=== PATIENT | male | born 1985 | race Caucasian/White ===

== ENCOUNTER 2016-05-25 17:42 | Emergency (ER) | payer OTHER ==
--- NOTE | 2016-05-25 17:57 | ERPHSYRPT ---
- History of Present Illness Time Seen by Provider: 05/25/16 17:45 Source: patient, family Exam Limitations: no limitations Patient Subjective Stated Complaint: pt states he hit head on a tree branch 15 min [employer]. pt states his mother told him he was unconscious for about a minute. Triage Nursing Assessment: pt pink, warm, dry. pt ambulated into er without difficulty. pupils perrl. redness noted to scalp. no hematoma noted. Occurred: just prior to arrival Severity: moderate Head Injury Location: frontal Method of Injury: direct blow Loss of Consciousness: prolonged (minutes) (2) Associated Symptoms: other (dizziness) Allergies/Adverse Reactions: diazepam [From Valium] Allergy (Verified 05/25/16 17:50) erythromycin base [Erythromycin Base] Allergy (Verified 05/25/16 17:50) Penicillins Allergy (Verified 05/25/16 17:50) Home Medications: Citalopram Hydrobromide 20 mg* [ceLEXa 20 MG] 20 mg PO DAILY 02/06/16 [ History] Lisinopril 10 mg [Zestril 10 MG] 10 mg PO DAILY 02/06/16 [History] Buspirone HCl 10 mg PO BID 05/25/16 [History] Hx Tetanus, Diphtheria Vaccination/Date Given: Yes (up to date) Hx Influenza Vaccination/Date Given: No Hx Pneumococcal Vaccination/Date Given: No Immunizations Up to Date: Yes - Review of Systems Constitutional: No Symptoms Eyes: No Symptoms Ears, Nose, & Throat: No Symptoms Respiratory: No Symptoms Cardiac: No Symptoms Abdominal/Gastrointestinal: No Symptoms Genitourinary Symptoms: No Symptoms Musculoskeletal: No Symptoms Skin: No Symptoms Neurological: Dizziness, Headache Psychological: No Symptoms Endocrine: No Symptoms Hematologic/Lymphatic: No Symptoms Immunological/Allergic: No Symptoms - Past Medical History Pertinent Past Medical History: Yes Neurological History: No Pertinent History ENT History: No Pertinent History Cardiac History: Hypertension Respiratory History: Asthma Endocrine Medical History: No Pertinent History Musculoskeletal History: No Pertinent History GI Medical History: No Pertinent History History: No Pertinent History Psycho-Social History: Depression Male Reproductive Disorders: No Pertinent History Other Medical History: CHRONIC BACK PAIN - Past Surgical History Past Surgical History: Yes Neuro Surgical History: No Pertinent History Cardiac: No Pertinent History Respiratory: No Pertinent History Gastrointestinal: Cholecystectomy, Hernia Repair Genitourinary: No Pertinent History Musculoskeletal: No Pertinent History Male Surgical History: No Pertinent History Other Surgical History: tonsils, umb hernia repair on - Social History Smoking Status: Current every day smoker How long have you smoked: 1 Exposure to second hand smoke: Yes Drug Use: none Patient Lives Alone: No - Nursing Vital Signs Nursing Vital Signs: Initial Vital Signs Temperature 98.0 F Temperature Source Oral Pulse Rate 90 Respiratory Rate 18 Blood Pressure 132/77 Pain Intensity 0 - [place] Coma Score Best Eye Response ([place]): (4) open spontaneously Best Verbal Response ([place]): (5) oriented Best Motor Response ([place]): (6) obeys commands [place] Total: 15 - Physical Exam General Appearance: moderate distress Head Injury: contusions, tenderness (vertex scalp 1 cm abrasion) Eye Exam: bilateral eye: normal inspection, PERRL, EOMI ENT Exam: airway nml, evidence of ENT injury Neck Exam: supple, trachea midline, full range of motion, normal alignment, normal inspection Cardiovascular/Respiratory Exam: chest non-tender, normal breath sounds, regular rate/rhythm Gastrointestinal/Abdominal Exam: soft, non tender Back Exam: normal inspection, normal range of motion Extremity Exam: non-tender, normal range of motion, normal inspection, normal capillary refill Mental Status Exam: alert, oriented 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, 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 Exam: normal hearing, normal speech, PERRL, tongue midline Coordination/Gait Exam: normal gait, normal cerebellar function Motor/Sensory Exam: no motor deficit, no sensory deficit Skin Exam: normal color, warm, dry SpO2 Interpretation: normal SpO2: 99 Oxygen Delivery: Room Air - Course Nursing assessment & vital signs reviewed: Yes Ordered Tests: Active Orders 24 hr Category Date Time Status HEAD WITHOUT CONTRAST [CT] Stat Exams 05/25/16 18:04 Taken - Progress Progress: improved Counseled pt/family regarding: diagnosis, need for follow-up, rad results - Departure Time of Disposition: 19:00 Departure Disposition: Home Clinical Impression: Concussion Qualifiers: Encounter type: initial encounter Loss of consciousness presence/duration: with LOC of 30 min or less Qualified Code(s): S06.0X1A - Concussion with loss of consciousness of 30 minutes or less, initial encounter Condition: Stable Critical Care Time: Yes Critical Care Time(excluding separately billable procedures): 30-74 minutes
[2016-05-25 19:13] VITALS: BP 143/71; PULSE 78; O2SAT 96
--- NOTE | 2016-05-26 08:40 | XRAY ---
Indication: Pain and syncope following head injury. Multiple contiguous axial images obtained through the head without contrast. Comparison: None Normal appearing brain parenchyma, ventricles, and bony calvarium. There is mild mucosal thickening of both ethmoid, both sphenoid, and both maxillary sinuses. Mastoid air cells are pneumatized and clear. Impression: No acute intracranial abnormalities. Incidental paranasal sinus disease. Comment: Preliminary interpretation was made by [facility]. No discrepancy. CT DI is 51.47
== END 2016-05-25 19:14 | disposition home or self-care (01) ==
LOC: ED 17:42
DX: S06.0X1A Concussion with loss of consciousness of 30 minutes or less, initial encounter (principal); W22.8XXA Striking against or struck by other objects, initial encounter; Z79.899 Other long term (current) drug therapy; I10 Essential (primary) hypertension
CPT/HCPCS: 70450; 99283

== ENCOUNTER 2016-07-01 23:07 | Emergency (ER) | payer OTHER ==
[2016-07-01] MEDS ORDERED: Hydromorphone 1 mg/ml Ampule IM ONE (23:29)
[2016-07-01] MEDS ORDERED: Phenergan 25 MG INJ IM ONE (23:29)
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
[2016-07-01] MEDS ORDERED: Phenergan 25 MG INJ ONE (23:40)
[2016-07-01] MEDS ORDERED: Hydromorphone 1 mg/ml Ampule ONE (23:41)
[2016-07-02 00:37] VITALS: BP 130/76; PULSE 96; O2SAT 97
== END 2016-07-02 00:37 | disposition home or self-care (01) ==
LOC: ED 23:07
DX: S39.012A Strain of muscle, fascia and tendon of lower back, initial encounter (principal); M54.5 Low back pain; G89.21 Chronic pain due to trauma
CPT/HCPCS: 96372; 99282; 99283; 99284; J1170; J2550

== ENCOUNTER 2016-10-03 17:26 | Emergency (ER) | payer OTHER ==
[2016-10-03 17:37] VITALS: BP 174/99; PULSE 120; O2SAT 99
[2016-10-03] MEDS ORDERED: Sodium Chloride 0.9% 1000 ML 1,000 ML IV STA (17:49)
--- NOTE | 2016-10-03 17:52 | ERPHSYRPT ---
- History of Present Illness Time Seen by Provider: 10/03/16 17:45 Source: patient Exam Limitations: no limitations Patient Subjective Stated Complaint: " I had left hand surgery a few days ago. i have not really felt right since. I thought that it might be the norcos. So, i stopped taking them about 2 days ago, but I still feel sick to my stomach and kind of out of it" Triage Nursing Assessment: aox3, breathing easy unlabored, skin pink warm dry with surgical wound noted to left palm, steady gait Physician History: 31-year-old white male states that he had carpal tunnel release on the left several days ago he states shortly after his surgery he began calling out at night he states he's been feeling weak nervous occasional headache. No vomiting no fevers. Patient states he feels weak and just doesn't feel right he states that he stopped taking [place] because he thought that might be the problem but symptoms continue. Past medical history includes asthma high blood pressure depression and chronic back pain. Past surgical history includes cholecystectomy hernia repair carpal tunnel release tonsillectomy umbilical hernia. Social history includes tobacco use. Timing/Duration: day(s) (2-3 days) Severity: moderate Modifying Factors: Improves With: nothing. Worsens With: ibuprofen Associated Symptoms: malaise, weakness, No nausea, No vomiting, No abdominal pain, No shortness of breath, No heartburn, No diaphoresis, No cough, No chills , No chest pain, No fever, No headaches, No loss of appetite, No rash, No syncope, No seizure Allergies/Adverse Reactions: diazepam [From Valium] Allergy (Verified 10/03/16 17:31) erythromycin base [Erythromycin Base] Allergy (Verified 10/03/16 17:31) Penicillins Allergy (Verified 10/03/16 17:31) Home Medications: Lisinopril 10 mg [Zestril 10 MG] 10 mg PO DAILY 02/06/16 [History] Buspirone HCl 10 mg PO BID 05/25/16 [History] Hx Tetanus, Diphtheria Vaccination/Date Given: Yes Hx Influenza Vaccination/Date Given: No Hx Pneumococcal Vaccination/Date Given: No - Review of Systems Constitutional: Malaise, Weakness, No Fever, No Chills Eyes: No Symptoms Ears, Nose, & Throat: No Symptoms Respiratory: No Cough, No Dyspnea Cardiac: No Chest Pain, No Edema, No Syncope Abdominal/Gastrointestinal: No Abdominal Pain, No Nausea, No Vomiting, No Diarrhea Genitourinary Symptoms: No Dysuria Musculoskeletal: No Back Pain, No Neck Pain Skin: No Rash Neurological: No Symptoms Psychological: No Symptoms Endocrine: No Symptoms All Other Systems: Reviewed and Negative - Past Medical History Pertinent Past Medical History: Yes Neurological History: No Pertinent History ENT History: No Pertinent History Cardiac History: Hypertension Respiratory History: Asthma Endocrine Medical History: No Pertinent History Musculoskeletal History: No Pertinent History GI Medical History: No Pertinent History History: No Pertinent History Psycho-Social History: Depression Male Reproductive Disorders: No Pertinent History Other Medical History: CHRONIC BACK PAIN - Past Surgical History Past Surgical History: Yes Neuro Surgical History: No Pertinent History Cardiac: No Pertinent History Respiratory: No Pertinent History Gastrointestinal: Cholecystectomy, Hernia Repair Genitourinary: No Pertinent History Musculoskeletal: No Pertinent History Male Surgical History: No Pertinent History Other Surgical History: tonsils, umb hernia repair, left hand - Social History Smoking Status: Current every day smoker How long have you smoked: 1 Exposure to second hand smoke: Yes Drug Use: none Patient Lives Alone: No - Nursing Vital Signs Nursing Vital Signs: Initial Vital Signs Temperature 98.0 F Pulse Rate 120 Respiratory Rate 16 Blood Pressure [174/99] 174/99 Pain Intensity 5 - Physical Exam General Appearance: no apparent distress, alert Eye Exam: PERRL/EOMI, eyes nml inspection Ears, Nose, Throat Exam: normal ENT inspection, TMs normal, pharynx normal, moist mucous membranes Neck Exam: normal inspection, non-tender, supple, full range of motion Respiratory Exam: normal breath sounds, lungs clear, No respiratory distress Cardiovascular Exam: regular rate/rhythm, normal heart sounds, normal peripheral pulses Gastrointestinal/Abdomen Exam: soft, normal bowel sounds, No tenderness, No mass Back Exam: normal inspection, normal range of motion, No CVA tenderness, No vertebral tenderness Extremity Exam: other (left wrist status post carpal tunnel repair dressing in place no erythema) Neurologic Exam: alert, oriented x 3, cooperative, normal mood/affect, nml cerebellar function, nml station & gait, sensation nml, No motor deficits Skin Exam: normal color, warm, dry, No rash Lymphatic Exam: No adenopathy SpO2 Interpretation: normal (99%) SpO2: 99 Oxygen Delivery: Room Air - Course Nursing assessment & vital signs reviewed: Yes EKG Interpreted by Me: RATE (97 bpm), Sinus Rhythm, NORMAL AXIS, Other (EKG, normal sinus rhythm, 97 beats per minute, normal axis, no acute ST or T wave changes, normal EKG) Ordered Tests: Active Orders 24 hr Category Date Time Status Accucheck STAT Care 10/03/16 17:52 Active EKG-ER Only STAT Care 10/03/16 17:49 Active IV Insertion STAT Care 10/03/16 17:49 Active Orthostatic Vital Signs STAT Care 10/03/16 17:52 Active AMYLASE Stat Lab 10/03/16 18:15 Completed CBC W DIFF Stat Lab 10/03/16 18:15 Completed CMP Stat Lab 10/03/16 18:15 Completed LIPASE Stat Lab 10/03/16 18:15 Completed UA W/ MICROSCOPIC Stat Lab 10/03/16 18:00 Completed Medication Summary Discontinued Medications Generic Name Dose Route Start Last Admin Trade Name Freq PRN Reason Stop Dose Admin Sodium Chloride 1,000 mls @ 999 mls/hr 10/03/16 17:49 10/03/16 18:31 Sodium Chloride 0.9% 1000 Ml IV 10/03/16 18:49 999 mls/hr .Q1H1M STA Administration Sodium Chloride Confirm 10/03/16 18:00 Sodium Chloride 0.9% 1000 Ml Administered 10/03/16 18:01 Dose 1,000 mls @ ud .ROUTE .STK-MED ONE Lab/Rad Data: Laboratory Result Diagrams 10/03/16 18:15 10/03/16 18:15 Laboratory Results 10/03/16 10/03/16 10/03/16 Range/Units 18:15 18:15 18:00 WBC 9.5 (4.0-10.5) K/mm3 RBC 5.39 (4.1-5.6) M/mm3 Hgb 16.6 (12.5-18.0) gm/dl Hct 47.2 (42-50) % MCV 87.6 (78-100) fl MCH 30.8 (26-32) pg MCHC 35.2 (32-36) g/dl RDW 13.0 (11.5-14.0) % Plt Count 333 (150-450) K/mm3 MPV 8.5 (6-9.5) fl Gran % 57.7 (36.0-66.0) % Lymphocytes % 28.0 (24.0-44.0) % Monocytes % 8.1 (0.0-12.0) % Eosinophils % 5.8 H (0.00-5.0) % Basophils % 0.4 (0.0-0.4) % Basophils # 0.04 (0-0.4) Sodium 137 (136-145) mEq/L Potassium 4.6 (3.5-5.1) mEq/L Chloride 101 (98-107) mEq/L Carbon Dioxide 25.2 (21-32) mEq/L Anion Gap 15.0 (5-15) MEQ/L BUN 10 (9-20) mg/dL Creatinine 0.74 (0.55-1.30) mg/dl Estimated GFR > 60 ML/MIN Glucose 103 (70-110) MG/DL Calcium 9.6 (8.5-10.1) mg/dL Total Bilirubin 0.3 (0.2-1.0) mg/dL AST 39 H (15-37) U/L ALT 91 H (12-78) U/L Alkaline Phosphatase 51 (46-116) U/L Serum Total Protein 7.9 (6.4-8.2) gm/dL Albumin 4.3 (3.4-5.0) g/dL Amylase 35 (25-115) U/L Lipase 95 (73-393) U/L Ur Collection Type CLEAN CATCH Urine Color YELLOW (YELLOW) Urine Appearance CLEAR (CLEAR) Urine pH 5.5 (5-6) Ur Specific [place] 1.015 (1.005-1.025) Urine Protein NEGATIVE (Negative) Urine Glucose (UA) NEGATIVE (NEGATIVE) mg/dL Urine Ketones NEGATIVE (NEGATIVE) Urine Nitrite NEGATIVE (NEGATIVE) Urine Bilirubin NEGATIVE (NEGATIVE) Urine Urobilinogen 0.2 (0-1) mg/dL Urine WBC (Auto) NEGATIVE (NEGATIVE) Urine RBC (Auto) TRACE-LYSED (0-5) Mio/ul Urine Microscopic WBC 0-2 (0-5) /HPF Ur Epithelial Cells RARE (FEW) /HPF Urine Bacteria RARE (NEGATIVE) /HPF Specimen Received [id number] - Progress Progress: improved Progress Note: 10/03/16 19:32 Patient feeling better after a liter of normal saline. Patient mildly orthostatic prior to this EKG on this patient normal sinus rhythm normal axis XCVII beats per minute no acute ST or T wave changes urinalysis is unremarkable CBC is normal chemistry remarkable for slight elevation of SGOT and SGPT. Will discharge patient - Departure Time of Disposition: 19:33 Departure Disposition: Home Clinical Impression: Malaise, Mild dehydration, history of recent carpal tunnel release Fatigue Qualifiers: Fatigue type: unspecified Qualified Code(s): R53.83 - Other fatigue Condition: Fair Critical Care Time: No Additional Instructions: Return home. Plenty of fluids. Follow-up with your family doctor if symptoms are worse no better in 24-48 hours or persist longer than 72 hours. Return for acute distress or for severe symptoms.
[2016-10-03] MEDS ORDERED: Sodium Chloride 0.9% 1000 ML 1,000 ML ONE (18:00)
[2016-10-03 18:32] LABS: BASOPHIL % 0.4 % (0.0-0.4); Eosinophil % 5.8 % (0.00-5.0); Granulocytes % 57.7 % (36.0-66.0); Mean Cell Volume 87.6 fl (78-100); Mean Corpuscular Hemoglobin 30.8 pg (26-32); Mean Platelet Volume 8.5 fl (6-9.5); Monocytes % 8.1 % (0.0-12.0); Platelet Count 333 K/mm3 (150-450); Red Blood Count 5.39 M/mm3 (4.1-5.6); White Blood Count 9.5 K/mm3 (4.0-10.5)
[2016-10-03 18:47] LABS: ALBUMIN 4.3 g/dL (3.4-5.0); ALKALINE PHOSPHATASE 51 U/L (46-116); BILIRUBIN,TOTAL 0.3 mg/dL (0.2-1.0); BLOOD UREA NITROGEN 10 mg/dL (9-20); CHLORIDE 101 mEq/L (98-107); Carbon Dioxide 25.2 mEq/L (21-32); Glucose 103 MG/DL (70-110); LIPASE 95 U/L (73-393); Potassium 4.6 mEq/L (3.5-5.1); SGOT/AST 39 U/L (15-37); SGPT/ALT 91 U/L (12-78); SODIUM 137 mEq/L (136-145); Total Protein 7.9 gm/dL (6.4-8.2)
[2016-10-03 19:08] LABS: Bacteria RARE /HPF (NEGATIVE); COMPLETE URINE MICROSCOPIC? YES; Collection Type CLEAN CATCH; Epithelial Cells RARE /HPF (FEW); Ph 5.5 (5-6); WBC 0-2 /HPF (0-5)
== END 2016-10-03 19:51 | disposition home or self-care (01) ==
LOC: ED 17:26
DX: R53.83 Other fatigue (principal); R53.81 Other malaise; E86.0 Dehydration; Z98.890 Other specified postprocedural states
CPT/HCPCS: 36000; 36415; 80053; 81000; 82150; 82962; 83690; 85025; 93005; 96360; 99284

== ENCOUNTER 2016-11-22 23:15 | Emergency (ER) | payer OTHER ==
--- NOTE | 2016-11-22 23:36 | ERPHSYRPT ---
- History of Present Illness Time Seen by Provider: 11/22/16 23:33 Historian: patient Exam Limitations: no limitations Physician History: pt has had rectal bleeding for three weeks but had more today; hemorrhoids are seen bleeding on rectal exam - abd nontender no thrombosed hemorrhoids seen. Timing/Duration: week(s) Activities at Onset: none Quality: other (no abd pain ) Abdominal Pain Onset Location: other (no abd pain) Pain Radiation: other (no abd pain) Severity of Pain-Max: none Severity of Pain-Current: none Associated Symptoms: other (rectal bleeding) Previous symptoms: same symptoms as today, no recent treatment Allergies/Adverse Reactions: diazepam [From Valium] Allergy (Verified 10/03/16 17:31) erythromycin base [Erythromycin Base] Allergy (Verified 10/03/16 17:31) Penicillins Allergy (Verified 10/03/16 17:31) Home Medications: Lisinopril 10 mg [Zestril 10 MG] 10 mg PO DAILY 02/06/16 [History] Buspirone HCl 10 mg PO BID 05/25/16 [History] Hx Tetanus, Diphtheria Vaccination/Date Given: Yes Hx Influenza Vaccination/Date Given: No Hx Pneumococcal Vaccination/Date Given: No - Review of Systems Constitutional: No Fever, No Chills Eyes: No Symptoms Ears, Nose, & Throat: No Symptoms Respiratory: No Cough, No Dyspnea Cardiac: No Chest Pain, No Edema, No Syncope Abdominal/Gastrointestinal: Hematochezia, No Abdominal Pain, No Nausea, No Vomiting, No Diarrhea Genitourinary Symptoms: No Dysuria Musculoskeletal: No Back Pain, No Neck Pain Skin: No Rash Neurological: No Dizziness, No Focal Weakness, No Sensory Changes Psychological: No Symptoms Endocrine: No Symptoms All Other Systems: Reviewed and Negative - Past Medical History Pertinent Past Medical History: Yes Neurological History: No Pertinent History ENT History: No Pertinent History Cardiac History: Hypertension Respiratory History: Asthma Endocrine Medical History: No Pertinent History Musculoskeletal History: No Pertinent History GI Medical History: No Pertinent History History: No Pertinent History Psycho-Social History: Depression Male Reproductive Disorders: No Pertinent History Other Medical History: CHRONIC BACK PAIN - Past Surgical History Past Surgical History: Yes Neuro Surgical History: No Pertinent History Cardiac: No Pertinent History Respiratory: No Pertinent History Gastrointestinal: Cholecystectomy, Hernia Repair Genitourinary: No Pertinent History Musculoskeletal: No Pertinent History Male Surgical History: No Pertinent History Other Surgical History: tonsils, umb hernia repair, left hand - Social History Smoking Status: Current every day smoker How long have you smoked: 1 Exposure to second hand smoke: Yes Drug Use: none Patient Lives Alone: No - Nursing Vital Signs Nursing Vital Signs: Initial Vital Signs Temperature 98.5 F Temperature Source Oral Pulse Rate 108 Respiratory Rate 18 Blood Pressure [Right Arm] 125/56 Pain Intensity 0 - Physical Exam General Appearance: no apparent distress, alert Eye Exam: PERRL/EOMI, eyes nml inspection Ears, Nose, Throat Exam: normal ENT inspection, pharynx normal, moist mucous membranes Neck Exam: normal inspection, non-tender, supple, full range of motion Respiratory Exam: normal breath sounds, lungs clear, No respiratory distress Cardiovascular Exam: regular rate/rhythm, normal heart sounds Gastrointestinal/Abdomen Exam: soft, No tenderness, No distention, No mass, No guarding, No pulsatile mass, No rebound Rectal Exam: normal rectal tone, hemorrhoids, blood Back Exam: normal inspection, normal range of motion, No CVA tenderness, No vertebral tenderness Extremity Exam: normal inspection, normal range of motion, pelvis stable Neurologic Exam: alert, oriented x 3, cooperative, normal mood/affect, nml cerebellar function, sensation nml, No motor deficits Skin Exam: normal color, warm, dry - Course Nursing assessment & vital signs reviewed: Yes Ordered Tests: Active Orders 24 hr Category Date Time Status Orthostatic Vital Signs STAT Care 11/22/16 23:40 Active CBC W DIFF Stat Lab 11/22/16 23:53 Completed Occult Blood,Stool Other Stat Lab 11/22/16 23:53 Completed Lab/Rad Data: Laboratory Result Diagrams 11/22/16 23:53 Laboratory Results 11/22/16 11/22/16 Range/Units 23:53 23:53 WBC 9.5 (4.0-10.5) K/mm3 RBC 4.58 (4.1-5.6) M/mm3 Hgb 14.2 (12.5-18.0) gm/dl Hct 42.2 (42-50) % MCV 92.1 (78-100) fl MCH 31.0 (26-32) pg MCHC 33.6 (32-36) g/dl RDW 13.5 (11.5-14.0) % Plt Count 310 (150-450) K/mm3 MPV 8.5 (6-9.5) fl Gran % 53.7 (36.0-66.0) % Lymphocytes % 31.5 (24.0-44.0) % Monocytes % 9.6 (0.0-12.0) % Eosinophils % 4.8 (0.00-5.0) % Basophils % 0.4 (0.0-0.4) % Basophils # 0.04 (0-0.4) Stool Occult Blood POSITIVE (Negative) - Progress Progress: improved, re-examined Progress Note: 11/23/16 00:34 discussed findings with pt, he was asymp during orthostatics. He does select DC to f/u with PCP rather than further eval and tx or admit here ; risks and benefits discussed including risk that there could be additonal pathology and thus the need for further eval; Counseled pt/family regarding: lab results, diagnosis, need for follow-up - Departure Time of Disposition: 00:37 Departure Disposition: Home Clinical Impression: Rectal bleeding, Hemorrhoids Condition: Good Critical Care Time: No Instructions: Hemorrhoids Additional Instructions: although you have hemorrhoids as the most likely source for your bleeding, there needs to be further workup with a scoping to rule out other potential causes as well which could also exist at the same time - see your Dr to arrange this; return meantime if any dizziness or other concerning symptoms; Prescriptions: Hydrocortisone [Procto-Med Hc] 30 gm RC DAILY #1 cream.[email or web address]
[2016-11-22 23:56] LABS: BASOPHIL % 0.4 % (0.0-0.4); Eosinophil % 4.8 % (0.00-5.0); Granulocytes % 53.7 % (36.0-66.0); Lymphocytes % 31.5 % (24.0-44.0); Mean Cell Volume 92.1 fl (78-100); Mean Platelet Volume 8.5 fl (6-9.5); Monocytes % 9.6 % (0.0-12.0); Platelet Count 310 K/mm3 (150-450); Red Blood Count 4.58 M/mm3 (4.1-5.6); Red Cell Distribution Width 13.5 % (11.5-14.0); White Blood Count 9.5 K/mm3 (4.0-10.5)
[2016-11-23 00:51] VITALS: BP 129/70; PULSE 76; O2SAT 100
== END 2016-11-23 00:51 | disposition home or self-care (01) ==
LOC: ED 23:15
DX: K62.5 Hemorrhage of anus and rectum (principal); K64.9 Unspecified hemorrhoids
CPT/HCPCS: 36415; 82272; 85025; 99283

== ENCOUNTER 2016-11-26 22:43 | Emergency (ER) | payer OTHER ==
[2016-11-26 22:58] VITALS: O2SAT 96
[2016-11-26] MEDS ORDERED: TORAdol 30 mg Injection IM ONE (23:08)
--- NOTE | 2016-11-26 23:08 | ERPHSYRPT ---
- History of Present Illness Time Seen by Provider: 11/26/16 23:03 Source: patient Exam Limitations: no limitations Patient Subjective Stated Complaint: pt states he slipped on a wet floor and fell while at work. states he fell on his knees and his back below the shoulder blades hurts. states he hit his back on the pop machine . Triage Nursing Assessment: pt alert and oriented, answers questions approp. pt ambualtory with steady gait ntoed. respirations nonlabored with lungs cta. no redness or abrasions noted to back or knees. pt denies numbness or tingling in upper or lower ext. pedal pulses, cap refill and sensation wnl. Physician History: The patient is a 31-year-old male with his mother complaining that he slipped at work tonight falling on his knees and hitting his back on a pop machine. His knees are mildly tender that he says his upper back hurts a lot. He is here to have his upper back evaluated. His past medical history is significant for depression and hypertension. Occurred: just prior to arrival Reason for Fall: slipped, fell from standing pos Injuries/Pain Location: back, lower extremity Loss of Consciousness: no loss of consciousness Quality: aching Severity of Pain-Max: moderate Severity of Pain-Current: moderate Modifying Factors: Improves With: nothing Associated Symptoms (Fall): denies symptoms Allergies/Adverse Reactions: diazepam [From Valium] Allergy (Verified 11/26/16 22:59) erythromycin base [Erythromycin Base] Allergy (Verified 11/26/16 22:59) Penicillins Allergy (Verified 11/26/16 22:59) Home Medications: Lisinopril 10 mg [Zestril 10 MG] 10 mg PO DAILY 02/06/16 [History] Buspirone HCl 10 mg PO BID 05/25/16 [History] Citalopram Hydrobromide 20 mg* [ceLEXa 20 MG] 20 mg PO 11/26/16 [History] Hx Tetanus, Diphtheria Vaccination/Date Given: Yes Hx Influenza Vaccination/Date Given: No Hx Pneumococcal Vaccination/Date Given: No Immunizations Up to Date: Yes - Review of Systems Constitutional: No Fever, No Chills Eyes: No Symptoms Ears, Nose, & Throat: No Symptoms Respiratory: No Cough, No Dyspnea Cardiac: No Chest Pain, No Edema, No Syncope Abdominal/Gastrointestinal: No Abdominal Pain, No Nausea, No Vomiting, No Diarrhea Genitourinary Symptoms: No Dysuria Musculoskeletal: Back Pain, Fall Skin: No Rash Neurological: No Dizziness, No Focal Weakness, No Sensory Changes Psychological: No Symptoms Endocrine: No Symptoms Hematologic/Lymphatic: No Symptoms Immunological/Allergic: No Symptoms All Other Systems: Reviewed and Negative - Past Medical History Pertinent Past Medical History: Yes Neurological History: No Pertinent History ENT History: No Pertinent History Cardiac History: Hypertension Respiratory History: Asthma Endocrine Medical History: No Pertinent History Musculoskeletal History: No Pertinent History GI Medical History: No Pertinent History History: No Pertinent History Psycho-Social History: Depression Male Reproductive Disorders: No Pertinent History Other Medical History: CHRONIC BACK PAIN - Past Surgical History Past Surgical History: Yes Neuro Surgical History: No Pertinent History Cardiac: No Pertinent History Respiratory: No Pertinent History Gastrointestinal: Cholecystectomy, Hernia Repair Genitourinary: No Pertinent History Musculoskeletal: Orthopedic Surgery Male Surgical History: No Pertinent History Other Surgical History: tonsils, umb hernia repair, left hand - Social History Smoking Status: Current every day smoker How long have you smoked: 1 Exposure to second hand smoke: Yes Drug Use: none Patient Lives Alone: No - Nursing Vital Signs Nursing Vital Signs: Initial Vital Signs Temperature 98.5 F Temperature Source Oral Pulse Rate 121 Respiratory Rate 20 Blood Pressure [Right Arm] 102/63 Pain Intensity 8 - [place] Coma Score Best Eye Response ([place]): (4) open spontaneously Best Verbal Response ([place]): (5) oriented Best Motor Response ([place]): (6) obeys commands [place] Total: 15 - Physical Exam General Appearance: mild distress Head Injury: no evidence of injury Eye Exam: PERRL/EOMI ENT Exam: airway nml Neck Exam: normal inspection, No tenderness Respiratory/Chest Exam: normal breath sounds, No chest tenderness, No respiratory distress Cardiovascular Exam: normal heart sounds, regular rate/rhythm Gastrointestinal Exam: soft, No tenderness, No distention, No guarding, No ecchymosis Rectal Exam: not done Back Exam: muscle spasm (paraspinous muscles), No vertebral tenderness Extremity Exam: normal inspection, normal range of motion, pelvis stable, No deformities Neurologic Exam: alert, oriented x 3, cooperative, sensation nml, No motor deficits Skin Exam: normal color, warm, dry SpO2 Interpretation: normal SpO2: 96 Oxygen Delivery: Room Air - Radiology Exams T-Spine X-ray Interpretation: Interpreted by me, Negative, No Fracture Ordered Tests: Active Orders 24 hr Category Date Time Status THORACIC SPINE (AP,LAT,SWIMM) Stat Exams 11/26/16 23:09 Ordered Medication Summary Discontinued Medications Generic Name Dose Route Start Last Admin Trade Name Tonyq PRN Reason Stop Dose Admin Ketorolac Tromethamine 60 mg 11/26/16 23:08 11/26/16 23:15 Toradol 30 Mg Injection IM 11/26/16 23:09 60 mg STAT ONE Administration Ketorolac Tromethamine Confirm 11/26/16 23:14 Toradol 30 Mg Injection Administered 11/26/16 23:15 Dose 60 mg .ROUTE .STK-MED ONE - Progress Progress: improved Counseled pt/family regarding: rad results - Departure Time of Disposition: 23:46 Departure Disposition: Home Clinical Impression: Back contusion Condition: Stable Critical Care Time: No Additional Instructions: You have a contusion of your upper back. You were given Toradol 60 mg IM injection in the ER. Apply ice as needed for relief. Take naproxen 500 mg every 12 hours as needed for pain. Follow-up as needed. Prescriptions: Naproxen 500 mg PO BID PRN #30 tablet.
[2016-11-26] MEDS ORDERED: TORAdol 30 mg Injection ONE (23:14)
[2016-11-27 00:09] VITALS: BP 143/65; PULSE 102
--- NOTE | 2016-11-27 08:34 | XRAY ---
Indication: Pain between shoulder blades following fall. Comparison: CT thoracic spine March 14, 2008. Frontal/lateral thoracic spine again demonstrates normal alignment with minimal multilevel anterior endplate spurring. Disc spaces preserved. No new/acute findings.
== END 2016-11-27 00:10 | disposition home or self-care (01) ==
LOC: ED 22:43
DX: S20.229A Contusion of unspecified back wall of thorax, initial encounter (principal); W01.198A Fall on same level from slipping, tripping and stumbling with subsequent striking against other object, initial encounter; Y92.511 Restaurant or cafe as the place of occurrence of the external cause; Y99.0 Civilian activity done for income or pay; S80.02XA Contusion of left knee, initial encounter; S80.01XA Contusion of right knee, initial encounter; M25.562 Pain in left knee; M25.561 Pain in right knee; I10 Essential (primary) hypertension; F32.9 Major depressive disorder, single episode, unspecified
CPT/HCPCS: 72072; 96372; 99284; J1885

== ENCOUNTER 2017-01-27 22:08 | Emergency (ER) | payer OTHER ==
--- NOTE | 2017-01-28 00:14 | ERPHSYRPT ---
- History of Present Illness Time Seen by Provider: 01/28/17 00:05 Source: patient Exam Limitations: no limitations Patient Subjective Stated Complaint: "I say a dr on . i was dx with citlaly jaffe. my JAIME is getting worse and i have not been able to get into my PCP. i took 4 ibuprofen" Triage Nursing Assessment: aox3, breathing easy unlabored, skin pink warm dry, steady gait Physician History: ELEVEN DAYS AGO PT WAS WALKING ON THE SIDEWALK, SLIPPED AND FELL WITH RESULTANT NECK PAIN. FOR THE PAST 6 DAYS PT HAS HAD A HEADACHE; FOR THE PAST WEEK CHEST PAIN; FOR THE PAST 3 DAYS COUGH; DIARRHEA FOR YEARS. Allergies/Adverse Reactions: diazepam [From Valium] Allergy (Verified 01/27/17 22:44) erythromycin base [Erythromycin Base] Allergy (Verified 01/27/17 22:44) Penicillins Allergy (Verified 01/27/17 22:44) Home Medications: Lisinopril 10 mg [Zestril 10 MG] 10 mg PO DAILY 02/06/16 [History] Buspirone HCl 10 mg PO BID 05/25/16 [History] Citalopram Hydrobromide 20 mg* [ceLEXa 20 MG] 20 mg PO 11/26/16 [History] Hx Tetanus, Diphtheria Vaccination/Date Given: Yes Hx Influenza Vaccination/Date Given: No Hx Pneumococcal Vaccination/Date Given: No - Review of Systems Respiratory: Cough Cardiac: Chest Pain Abdominal/Gastrointestinal: Diarrhea Musculoskeletal: Back Pain (CHRONIC), Neck Pain Neurological: Headache All Other Systems: Reviewed and Negative - Past Medical History Pertinent Past Medical History: Yes Neurological History: Migraines ENT History: No Pertinent History Cardiac History: Hypertension Respiratory History: Asthma Endocrine Medical History: No Pertinent History Musculoskeletal History: No Pertinent History GI Medical History: No Pertinent History History: No Pertinent History Psycho-Social History: Depression Male Reproductive Disorders: No Pertinent History Other Medical History: CHRONIC BACK PAIN - Past Surgical History Past Surgical History: Yes Neuro Surgical History: No Pertinent History Cardiac: No Pertinent History Respiratory: No Pertinent History Gastrointestinal: Cholecystectomy, Hernia Repair Genitourinary: No Pertinent History Musculoskeletal: Orthopedic Surgery Male Surgical History: No Pertinent History Other Surgical History: tonsils, umb hernia repair, left hand - Social History Smoking Status: Current every day smoker How long have you smoked: 1 Exposure to second hand smoke: Yes Drug Use: none Patient Lives Alone: No - Nursing Vital Signs Nursing Vital Signs: Initial Vital Signs Temperature 97.9 F 01/27/17 22:38 Pulse Rate 97 H 01/27/17 22:38 Respiratory Rate 14 01/27/17 22:38 Blood Pressure 154/90 01/27/17 22:38 O2 Sat by Pulse Oximetry 96 01/27/17 22:38 Pain Scale Pain Intensity 8 - Physical Exam General Appearance: alert Eye Exam: PERRL/EOMI Ears, Nose, Throat Exam: TMs normal, pharynx normal, moist mucous membranes Neck Exam: other (MILD POSTERIOR TENDERNESS) Respiratory Exam: lungs clear Cardiovascular Exam: normal heart sounds Gastrointestinal/Abdomen Exam: soft, normal bowel sounds Back Exam: normal range of motion, No vertebral tenderness Extremity Exam: normal inspection, No pedal edema Neurologic Exam: alert, cooperative, sensation nml, No motor deficits Skin Exam: warm, dry SpO2 Interpretation: normal SpO2: 98 Oxygen Delivery: Room Air - Course Nursing assessment & vital signs reviewed: Yes EKG Interpreted by Me: RATE (96), Sinus Rhythm, NORMAL AXIS, NORMAL INTERVALS - Radiology Exams Chest X-ray Interpretation: Interpreted by me, No Pneumonia - CT Exams Head CT Interpretation: Tele-radiologist Report (NO ACUTE FINDINGS) Cervical Spine CT Interpretation: Tele-radiologist Report (NO ACUTE FINDINGS) Ordered Tests: Active Orders 24 hr Category Date Time Status Imaging Engineer STAT Care 01/28/17 00:13 Active EKG-ER Only STAT Care 01/28/17 00:12 Active IV Insertion STAT Care 01/28/17 00:12 Active Oxygen-ED Only NASAL CANNULA 2 lpm Care 01/28/17 00:12 Active Pulse Oximetry (ED) STAT Care 01/28/17 00:12 Active CERVICAL SPINE WO CONTRAST [CT] Stat Exams 01/28/17 00:11 Taken CHEST 2 VIEWS (PA AND LAT) Stat Exams 01/28/17 00:13 Taken HEAD WITHOUT CONTRAST [CT] Stat Exams 01/28/17 00:11 Taken AMYLASE Stat Lab 01/28/17 00:30 Completed CBC W DIFF Stat Lab 01/28/17 00:30 Completed CMP Stat Lab 01/28/17 00:30 Completed LIPASE Stat Lab 01/28/17 00:30 Completed MAGNESIUM Stat Lab 01/28/17 00:30 Completed Manual Differential NC Stat Lab 01/28/17 00:30 Completed NT PRO BNP Stat Lab 01/28/17 00:30 Completed TROPONIN Q3H Lab 01/28/17 00:30 Completed TROPONIN Q3H Lab 01/28/17 03:15 Ordered TROPONIN Q3H Lab 01/28/17 06:15 Ordered TROPONIN Q3H Lab 01/28/17 09:15 Ordered TROPONIN Q3H Lab 01/28/17 12:15 Ordered UA W/RFX UR CULTURE Stat Lab 01/28/17 00:20 Completed Medication Summary Generic Name Dose Route Start Last Admin Trade Name Kelly PRN Reason Stop Dose Admin Sodium Chloride 1,000 mls @ 100 mls/hr 01/28/17 00:15 01/28/17 00:46 Sodium Chloride 0.9% 1000 Ml IV 02/27/17 00:14 100 mls/hr .Q10H SHAN Administration Lab/Rad Data: Laboratory Result Diagrams 01/28/17 00:30 01/28/17 00:30 Laboratory Results 01/28/17 01/28/17 01/28/17 Range/Units 00:30 00:30 00:30 WBC 14.1 H (4.0-10.5) K/mm3 RBC 5.10 (4.1-5.6) M/mm3 Hgb 15.8 (12.5-18.0) gm/dl Hct 46.5 (42-50) % MCV 91.2 (78-100) fl MCH 31.0 (26-32) pg MCHC 34.0 (32-36) g/dl RDW 13.4 (11.5-14.0) % Plt Count 335 (150-450) K/mm3 MPV 8.3 (6-9.5) fl Segmented Neutrophils 57 (36.-66.) % Lymphocytes (Manual) 28 (24-44) % Monocytes (Manual) 9 (0.0-12.0) % Eosinophils (Manual) 4 H (0.00-3.0) % Differential Comment NORMAL Atypical Lymphocytes 2 % Platelet Estimate NORMAL (NORMAL) Sodium 138 (136-145) mEq/L Potassium 4.2 (3.5-5.1) mEq/L Chloride 101 (98-107) mEq/L Carbon Dioxide 22.4 (21-32) mEq/L Anion Gap 18.5 H (5-15) MEQ/L BUN 14 (9-20) mg/dL Creatinine 0.71 (0.55-1.30) mg/dl Estimated GFR > 60 ML/MIN Glucose 89 (70-110) MG/DL Calcium 9.3 (8.5-10.1) mg/dL Magnesium 2.0 (1.8-2.4) mg/dL Total Bilirubin 0.30 (0.2-1.0) mg/dL AST 23 (15-37) U/L ALT 38 (12-78) U/L Alkaline Phosphatase 53 (46-116) U/L Troponin I < 0.017 (0.000-0.056) ng/ml NT-Pro-B Natriuret Pep 9 (0-125) pg/ml Serum Total Protein 7.6 (6.4-8.2) gm/dL Albumin 4.2 (3.4-5.0) g/dL Amylase 40 (25-115) U/L Lipase 86 (73-393) U/L Ur Collection Type Urine Color (YELLOW) Urine Appearance (CLEAR) Urine pH (5-6) Ur Specific [place] (1.005-1.025) Urine Protein (Negative) Urine Ketones (NEGATIVE) Urine Blood (0-5) Mio/ul Urine Nitrite (NEGATIVE) Urine Bilirubin (NEGATIVE) Urine Urobilinogen (0-1) mg/dL Ur Leukocyte Esterase (NEGATIVE) Urine Glucose (NEGATIVE) mg/dL Specimen Received 01/28/17 Range/Units 00:20 WBC (4.0-10.5) K/mm3 RBC (4.1-5.6) M/mm3 Hgb (12.5-18.0) gm/dl Hct (42-50) % MCV (78-100) fl MCH (26-32) pg MCHC (32-36) g/dl RDW (11.5-14.0) % Plt Count (150-450) K/mm3 MPV (6-9.5) fl Segmented Neutrophils (36.-66.) % Lymphocytes (Manual) (24-44) % Monocytes (Manual) (0.0-12.0) % Eosinophils (Manual) (0.00-3.0) % Differential Comment Atypical Lymphocytes % Platelet Estimate (NORMAL) Sodium (136-145) mEq/L Potassium (3.5-5.1) mEq/L Chloride (98-107) mEq/L Carbon Dioxide (21-32) mEq/L Anion Gap (5-15) MEQ/L BUN (9-20) mg/dL Creatinine (0.55-1.30) mg/dl Estimated GFR ML/MIN Glucose (70-110) MG/DL Calcium (8.5-10.1) mg/dL Magnesium (1.8-2.4) mg/dL Total Bilirubin (0.2-1.0) mg/dL AST (15-37) U/L ALT (12-78) U/L Alkaline Phosphatase (46-116) U/L Troponin I (0.000-0.056) ng/ml NT-Pro-B Natriuret Pep (0-125) pg/ml Serum Total Protein (6.4-8.2) gm/dL Albumin (3.4-5.0) g/dL Amylase (25-115) U/L Lipase (73-393) U/L Ur Collection Type CLEAN CATCH Urine Color YELLOW (YELLOW) Urine Appearance CLEAR (CLEAR) Urine pH 5.0 (5-6) Ur Specific [place] 1.020 (1.005-1.025) Urine Protein NEGATIVE (Negative) Urine Ketones NEGATIVE (NEGATIVE) Urine Blood NEGATIVE (0-5) Mio/ul Urine Nitrite NEGATIVE (NEGATIVE) Urine Bilirubin NEGATIVE (NEGATIVE) Urine Urobilinogen NORMAL (0-1) mg/dL Ur Leukocyte Esterase NEGATIVE (NEGATIVE) Urine Glucose NEGATIVE (NEGATIVE) mg/dL Specimen Received 01/28/17:0020 - Departure Time of Disposition: 03:11 Departure Disposition: Home Clinical Impression: HEADACHE, NECK SPRAIN, CHEST PAIN Condition: Stable Critical Care Time: No Referrals: JONA URBINA [Primary Care Provider] - Instructions: Headache, Whiplash Additional Instructions: FOLLOW UP WITH PRIVATE DOCTOR TOMORROW. WEAR SOFT C-COLLAR FOR 2 WEEKS ONLY WHILE AWAKE. Prescriptions: Naproxen [Naprosyn] 500 mg PO Q12H PRN PRN #20 tablet PRN Reason: Pain Cyclobenzaprine HCl [Flexeril] 10 mg PO TID #20 tablet
[2017-01-28] MEDS ORDERED: Sodium Chloride 0.9% 1000 ML 1,000 ML IV SCH (00:15)
[2017-01-28] MEDS ORDERED: Sodium Chloride 0.9% 1000 ML 1,000 ML ONE (00:18)
[2017-01-28 00:38] LABS: Mean Cell Volume 91.2 fl (78-100); Mean Platelet Volume 8.3 fl (6-9.5); Platelet Count 335 K/mm3 (150-450); Red Cell Distribution Width 13.4 % (11.5-14.0); White Blood Count 14.1 K/mm3 (4.0-10.5)
[2017-01-28 00:38] LABS: ADD URINE CULTURE? NO (NO); Bilirubin NEGATIVE (NEGATIVE); Blood NEGATIVE Ery/ul (0-5); COMPLETE URINE MICROSCOPIC? NO; Collection Type CLEAN CATCH; Glucose NEGATIVE (NEGATIVE); Leukocyte Esterase NEGATIVE (NEGATIVE)
[2017-01-28 01:07] LABS: ALBUMIN 4.2 g/dL (3.4-5.0); ALKALINE PHOSPHATASE 53 U/L (46-116); ANION GAP 18.5 MEQ/L (5-15); BLOOD UREA NITROGEN 14 mg/dL (9-20); CHLORIDE 101 mEq/L (98-107); Carbon Dioxide 22.4 mEq/L (21-32); Glucose 89 MG/DL (70-110); LIPASE 86 U/L (73-393); Potassium 4.2 mEq/L (3.5-5.1); SGPT/ALT 38 U/L (12-78); SODIUM 138 mEq/L (136-145); Total Protein 7.6 gm/dL (6.4-8.2)
[2017-01-28 01:25] LABS: SGOT/AST 23 U/L (15-37)
[2017-01-28 01:34] VITALS: O2SAT 98
[2017-01-28 03:00] LABS: ATYPICAL LYMPHS 2 %; Eosinophil 4 % (0.00-3.0); Platelet Estimate NORMAL (NORMAL); Total Cells Counted 100
[2017-01-28 03:11] VITALS: BP 131/66; PULSE 94
--- NOTE | 2017-01-28 10:38 | XRAY ---
Exam: Two-view chest from 01/28/2017. Comparison: Two-view chest from 03/04/2016. Indication: Fall, pain. Findings: Upright PA and lateral chest films are submitted for evaluation. The heart size is normal. Pulmonary vascularity is normal. The sara and mediastinal structures appear unremarkable. EKG leads are seen in place. There is adequate inflation of the lungs. No air space infiltrates, pneumothorax, or pleural fluid is seen. No other parenchymal lung abnormality is seen. The inferior tip of the posterior lung sulci has been barely cut off from the lateral image. No acute osseous process is seen. Impression: 1. No acute cardiopulmonary process is seen. The findings are unchanged from 03/04/2016.
--- NOTE | 2017-01-28 11:08 | XRAY ---
Exam: CT of the head without IV contrast 01/28/2017. CTDI: 52.39 Comparison: CT of the head without IV contrast from 05/25/2016. Indication: Fall/tripped and fell about 3 feet, complains of headache. Technique: Non-IV contrast axial images were obtained through the brain. Reconstructed coronal and sagittal images were created and reviewed. Findings: The ventricles appear of unremarkable size. No focal mass effect or midline shift is seen. No acute intracranial bleed or abnormal extra-axial fluid collection is seen. The foley matter-white matter interfaces appear unremarkable. No area of focal low-attenuation territorial infarction or edema is seen. The cortical sulci and basilar cisterns appear unremarkable. The calvarium of the skull appears intact. There is some mild to moderate mucosal thickening within the ethmoid sinuses. There is also minimal mucosal thickening at the upper anterior and lateral margins of the right maxillary sinus. The visualized superior aspect of the left maxillary sinus and sphenoid sinus appear unremarkable. The mastoid air cells are well aerated. Impression: 1. No acute intracranial bleed or other acute brain findings are seen. 2. Mild chronic bilateral ethmoid and superior right maxillary sinus mucosal thickening/disease is seen. I believe this is slightly improved from 05/25/2016. This is consistent with chronic sinus disease.
--- NOTE | 2017-01-28 11:38 | XRAY ---
Exam: Cervical spine CT without IV contrast from 01/28/2017. CTDI: 100.98 Comparison: CT of the cervical spine from 03/14/2008. Indication:: Patient tripped and fell about 3 feet, complains of headache. Technique: Non-IV contrast axial images were obtained through the cervical spine. Reconstructed coronal and sagittal images were created and reviewed. Findings: I see no evidence of acute cervical spine fracture or AP subluxation. The prevertebral soft tissues appear unremarkable. The preodontoid space is well-maintained. No cervical ribs are seen. There is minimal hypertrophic degenerative change of the right C4-C5 uncovertebral joint on the coronal images. The remainder of the uncovertebral joints appears unremarkable. The C1-C2 relationship appears unremarkable on the coronal images. There is a mild kyphosis centered at C5-C6. There is minimal posterior lateral vertebral endplate spurring on each side of midline at C3-C4, but greater on the right than left. Also, there is some minimal posterior vertebral endplate spurring posterolaterally on each side of midline at C4-C5. I believe this results in minimal compromise of the C3-C4 neural foramen bilaterally and the right C4-C5 neural foramen as compared to other neural foramen sites within the cervical spine. I cannot exclude a small left paracentral disc bulge or protrusion on axial images #36 and #37 at C4-C5. If indicated, MRI of the cervical spine may be helpful for further evaluation. I also note minimal posterior vertebral endplate spurring at C6-C7. The cervical interspaces are not narrowed. There is no evidence of central canal stenosis. Impression: 1. No acute cervical spine fracture, AP subluxation, or prevertebral soft tissue swelling is seen. 2. There is a minimal posterior vertebral endplate spurring, as discussed above. This appears to contribute to minimal compromise of the C3-C4 neural foramen bilaterally as well as the right C4-C5 neural foramen. No central canal stenosis is seen. 3. In addition, I cannot exclude a small left paracentral disc bulge or protrusion at C4-C5. Some associated posterior vertebral endplate spurring is seen to the left of midline at C4-C5 on axial image #38 as well.
== END 2017-01-28 03:30 | disposition home or self-care (01) ==
LOC: ED 22:08
DX: R51 Headache (principal); S13.9XXA Sprain of joints and ligaments of unspecified parts of neck, initial encounter; R07.9 Chest pain, unspecified; W01.0XXA Fall on same level from slipping, tripping and stumbling without subsequent striking against object, initial encounter
CPT/HCPCS: 36000; 36415; 70450; 71020; 72125; 80053; 81002; 82150; 83690; 83735; 83880; 84484; 85025; 93005; 93041; 96360; 96361; 96365; 99284; L0120

== ENCOUNTER 2017-08-18 05:36 | Day surgery (SDC) | payer OTHER ==
[2017-08-18] MEDS ORDERED: Ketamine HCl 50 MG/ML IJ ONE (05:37)
[2017-08-18] MEDS ORDERED: DIPRIVAN 200 MG/20 ML IV ONE (05:37)
[2017-08-18] MEDS ORDERED: Lactated Ringers 1,000 ML IV SCH (06:30)
[2017-08-18 09:14] VITALS: BP 159/88; PULSE 81; O2SAT 95
--- NOTE | 2017-08-18 09:53 | OP ---
SURGERY DATE/TIME: 08/18/2017 0800 PREOPERATIVE DIAGNOSIS: Rectal bleeding. POSTOPERATIVE DIAGNOSIS: Normal colon. PROCEDURE: Colonoscopy with biopsy. SURGEON: Dr. Caro. ANESTHESIA: MAC. Medications given by anesthesia department. HISTORY: The patient is a 32 year-old white male who reports he has been having problems with intermittent rectal bleeding. He reported the blood has been mixed in with the stool and almost been diarrhea at times. He was felt the need to have endoscopic evaluation. He was appraised of the risks of the procedure including the risk of perforation, phlebitis, untoward reaction to medication, bleeding and missed lesions. The patient verbalized his understanding and desired to have the procedure performed. DESCRIPTION OF PROCEDURE: The patient was given the medications by the anesthesia department. He had continuous pulse oximetry, ECG monitoring, intermittent blood pressure monitoring and tidal CO2 monitoring during the examination. He was placed in the left lateral decubitus position. A digital rectal examination was performed and revealed normal anal sphincter tone and no masses and normal prostate and no significant hemorrhoids. The flexible Olympus pediatric colonoscope was used to intubate the rectum. A view of the colon was developed sequentially to the cecum including a short distance into the terminal ileum. Upon insertion and withdrawal, including a retroflex view in the rectum, no mucosal lesions were encountered. Biopsies were obtained throughout the colon to rule out underlying collagenous colitis. The scope was removed from the patient who tolerated the procedure well and was sent back to OP recovery in good condition. The prep was noted to be good.
== END 2017-08-18 09:28 | disposition home or self-care (01) ==
LOC: SDC 05:36
PROVIDERS: ATTEND Family Medicine
PROC: 0DBG8ZX Excision of Left Large Intestine, Via Natural or Artificial Opening Endoscopic, Diagnostic (ICD-10-PCS; principal; 2017-08-18)
PROC: 0DBF8ZX Excision of Right Large Intestine, Via Natural or Artificial Opening Endoscopic, Diagnostic (ICD-10-PCS; 2017-08-18)
DX: K62.5 Hemorrhage of anus and rectum (principal)
CPT/HCPCS: J2704

== ENCOUNTER 2017-10-31 03:32 | Emergency (ER) | payer OTHER ==
[2017-10-31] MEDS ORDERED: NORCO 5/325 MG PO ONE (03:51)
[2017-10-31] MEDS ORDERED: Augmentin 875-125 Tablet PO ONE (03:51)
--- NOTE | 2017-10-31 03:55 | ERPHSYRPT ---
- History of Present Illness Time Seen by Provider: 10/31/17 03:52 Source: patient Exam Limitations: no limitations Physician History: 32 y/o male comes to the ER with complaints of right lower tooth pain that started this morning. Pt describes the pain as sharp, constant, 8/10 and not relieved by advil. Pt denies any fever, chills or pain radiating. Timing/Duration: gradual onset Severity: severe ENT Location: dental Prearrival Treatment: over the counter meds Modifying Factors: Improves With: nothing Associated Symptoms: denies symptoms Allergies/Adverse Reactions: codeine Allergy (Verified 08/18/17 06:16) diazepam [From Valium] Allergy (Verified 08/18/17 06:16) erythromycin base [Erythromycin Base] Allergy (Verified 08/18/17 06:16) Penicillins Allergy (Verified 08/18/17 06:16) Home Medications: Lisinopril 10 mg [Zestril 10 MG] 10 mg PO DAILY 02/06/16 [History] Buspirone HCl 10 mg PO BID 05/25/16 [History] Citalopram Hydrobromide 20 mg* [ceLEXa 20 MG] 20 mg PO DAILY 11/26/16 [ History] Hx Tetanus, Diphtheria Vaccination/Date Given: Yes Hx Influenza Vaccination/Date Given: No Hx Pneumococcal Vaccination/Date Given: No - Review of Systems Constitutional: No Fever, No Chills Eyes: No Symptoms Ears, Nose, & Throat: No Symptoms, Mouth Pain Respiratory: No Cough, No Dyspnea Cardiac: No Chest Pain, No Edema, No Syncope Abdominal/Gastrointestinal: No Abdominal Pain, No Nausea, No Vomiting, No Diarrhea Genitourinary Symptoms: No Dysuria Musculoskeletal: No Back Pain, No Neck Pain Skin: No Rash Neurological: No Dizziness, No Focal Weakness, No Sensory Changes Psychological: No Symptoms Endocrine: No Symptoms All Other Systems: Reviewed and Negative - Past Medical History Pertinent Past Medical History: Yes Neurological History: Migraines ENT History: No Pertinent History Cardiac History: Hypertension Respiratory History: Asthma Endocrine Medical History: No Pertinent History Musculoskeletal History: No Pertinent History GI Medical History: No Pertinent History History: No Pertinent History Psycho-Social History: Depression Male Reproductive Disorders: No Pertinent History Other Medical History: CHRONIC BACK PAIN,3 bulging disks. - Past Surgical History Past Surgical History: Yes Neuro Surgical History: No Pertinent History Cardiac: No Pertinent History Respiratory: No Pertinent History Gastrointestinal: Cholecystectomy, Hernia Repair Genitourinary: No Pertinent History Musculoskeletal: Orthopedic Surgery Male Surgical History: No Pertinent History Other Surgical History: tonsils, umb hernia repair, left hand ,carpal tunnel - Social History Smoking Status: Current every day smoker How long have you smoked: age 18 Exposure to second hand smoke: Yes Drug Use: none Patient Lives Alone: No - Nursing Vital Signs Nursing Vital Signs: Initial Vital Signs Temperature 99.1 F 10/31/17 04:30 Pulse Rate 74 10/31/17 04:30 Respiratory Rate 16 10/31/17 04:30 Blood Pressure 124/84 10/31/17 04:30 O2 Sat by Pulse Oximetry 98 10/31/17 04:30 Pain Scale Pain Intensity 8 - Physical Exam General Appearance: mild distress, alert Eye Exam: bilateral eye: PERRL, EOMI Nasal Exam: normal inspection Throat Exam: pharynx normal, dental tenderness, moist mucus membranes, No tonsillar exudate Neck Exam: supple Cardiovascular/Respiratory Exam: normal breath sounds, regular rate/rhythm Abdominal Exam: non-tender, soft Neurologic Exam: alert, oriented x 3, sensation nml, No motor deficits Skin Exam: normal color, warm, dry - Course Nursing assessment & vital signs reviewed: Yes Ordered Tests: Medication Summary Discontinued Medications Generic Name Dose Route Start Last Admin Trade Name Kelly PRN Reason Stop Dose Admin Hydrocodone Bitart/Acetaminophen 1 tab 10/31/17 03:51 [place] 5/325 Mg PO 10/31/17 03:52 STAT ONE Amoxicillin/Clavulanate Potassium 875 mg 10/31/17 03:51 Augmentin 875-125 Tablet PO 10/31/17 03:52 STAT ONE - Progress Progress: improved Progress Note: 10/31/17 03:54 Pt will be given a short course of norco and augmentin for tooth infection. - Departure Time of Disposition: 03:54 Departure Disposition: Home Clinical Impression: Tooth infection Condition: Stable Critical Care Time: No Referrals: JONA URBINA [Primary Care Provider] - Instructions: Dental Pain (DC) Additional Instructions: Follow up with your dentist in the next few days for any additional recommendations. Prescriptions: Amox Tr/Potass Clav. 875 mg [Augmentin 875-125 Tablet] 875 mg PO BID #19 tablet Hydrocodone/Acetaminophen [[place] 5-325 Tablet] 1 each PO QID PRN #12 tablet MDD 4 PRN Reason: Pain
[2017-10-31 04:41] VITALS: BP 124/84; PULSE 74; O2SAT 98
[2017-10-31] MEDS ORDERED: Augmentin 875-125 Tablet ONE (04:55)
[2017-10-31] MEDS ORDERED: NORCO 5/325 MG ONE (04:56)
== END 2017-10-31 05:11 | disposition home or self-care (01) ==
LOC: ED 03:32
DX: K04.7 Periapical abscess without sinus (principal)
CPT/HCPCS: 99283; A9270-GY

== ENCOUNTER 2017-11-10 22:21 | Emergency (ER) | payer OTHER ==
[2017-11-10] MEDS ORDERED: NORCO 5/325 MG PO ONE (22:44)
[2017-11-10] MEDS ORDERED: NORCO 5/325 MG ONE (22:50)
--- NOTE | 2017-11-10 22:51 | ERPHSYRPT ---
- History of Present Illness Time Seen by Provider: 11/10/17 22:32 Source: patient Exam Limitations: no limitations Patient Subjective Stated Complaint: pt had dental extraction of bottom right near back of mouth at 1500 this afternoon; pain increasingly worse throughout the evening; unable to sleep at this point; states pain is "more in the right upper side of face into adventism." Triage Nursing Assessment: pt a&o x3; skin p, w, & d; ambulated to room per self ; states dentist did not give him anything for pain. Physician History: Pt was treated by dentist today, his right lower wisdom tooth was removed. He was started on PO Keflex. He started c/o pain in his right jaw, the TMJ area, radiating to his right ear. He denies headaches, vomiting, fever, other complaints. Timing/Duration: abrupt onset Severity: severe ENT Location: facial Prearrival Treatment: no prearrival treatment Modifying Factors: Improves With: nothing Associated Symptoms: jaw pain Allergies/Adverse Reactions: codeine Allergy (Verified 08/18/17 06:16) diazepam [From Valium] Allergy (Verified 08/18/17 06:16) erythromycin base [Erythromycin Base] Allergy (Verified 08/18/17 06:16) Penicillins Allergy (Verified 08/18/17 06:16) Home Medications: Lisinopril 10 mg [Zestril 10 MG] 10 mg PO DAILY 02/06/16 [History] Buspirone HCl 10 mg PO BID 05/25/16 [History] Citalopram Hydrobromide 20 mg* [ceLEXa 20 MG] 20 mg PO DAILY 11/26/16 [ History] Hx Tetanus, Diphtheria Vaccination/Date Given: No Hx Influenza Vaccination/Date Given: No Hx Pneumococcal Vaccination/Date Given: No Immunizations Up to Date: No - Review of Systems Constitutional: No Symptoms Ears, Nose, & Throat: Mouth Pain All Other Systems: Reviewed and Negative - Past Medical History Pertinent Past Medical History: Yes Neurological History: Migraines ENT History: No Pertinent History Cardiac History: Hypertension Respiratory History: Asthma Endocrine Medical History: No Pertinent History Musculoskeletal History: No Pertinent History GI Medical History: No Pertinent History History: No Pertinent History Psycho-Social History: Depression Male Reproductive Disorders: No Pertinent History Other Medical History: CHRONIC BACK PAIN,3 bulging disks. - Past Surgical History Past Surgical History: Yes Neuro Surgical History: No Pertinent History Cardiac: No Pertinent History Respiratory: No Pertinent History Gastrointestinal: Cholecystectomy, Hernia Repair Genitourinary: No Pertinent History Musculoskeletal: Orthopedic Surgery Male Surgical History: No Pertinent History Other Surgical History: tonsils, umb hernia repair, left hand ,carpal tunnel - Social History Smoking Status: Current every day smoker How long have you smoked: 3 Exposure to second hand smoke: No Drug Use: none Patient Lives Alone: No - Nursing Vital Signs Nursing Vital Signs: Initial Vital Signs Temperature 98.4 F 11/10/17 22:33 Pulse Rate 92 H 11/10/17 22:33 Respiratory Rate 16 11/10/17 22:33 Blood Pressure 137/83 11/10/17 22:33 O2 Sat by Pulse Oximetry 98 11/10/17 22:33 Pain Scale Pain Intensity 9 - Physical Exam General Appearance: no apparent distress Eye Exam: bilateral eye: normal inspection Ear Exam: bilateral ear: canal normal, TM normal Nasal Exam: normal inspection Throat Exam: normal, pharynx normal (right lower wisdom tooth ( # 32) removed, small clot is in the gum lesion, no active bleeding, no severe gum swelling, or edema. Right TMJ is tender.), moist mucus membranes Neck Exam: normal inspection, non-tender, supple, trachea midline, No JVD, No lymphadenopathy (R), No lymphadenopathy (L) Cardiovascular/Respiratory Exam: chest non-tender, normal breath sounds, regular rate/rhythm, heart sounds normal Abdominal Exam: non-tender Neurologic Exam: alert, oriented x 3, normal mood/affect Skin Exam: normal color, warm, dry SpO2 Interpretation: normal SpO2: 98 Oxygen Delivery: Room Air - Course Nursing assessment & vital signs reviewed: Yes Ordered Tests: Medication Summary Discontinued Medications Generic Name Dose Route Start Last Admin Trade Name Freq PRN Reason Stop Dose Admin Hydrocodone Bitart/Acetaminophen 1 tab 11/10/17 22:44 [place] 5/325 Mg PO 11/10/17 22:45 STAT ONE - Progress Progress: improved Progress Note: 11/10/17 22:49 I explained the nature of his post extraction TMJ pain and tenderness, he has enrique be on soft diet for few days, advised to continue Keflex as directed, and he was given 1 [place] (5/325 mg) here and Rx for 5 more tablets. He filled Rx for #12 5/325 mg [place] on 10/31/17 according to [facility]. Also advised to return if severe headaches, vomiting, bleeding or fever> 102 F. Counseled pt/family regarding: diagnosis, need for follow-up - Departure Time of Disposition: 22:51 Departure Disposition: Home Clinical Impression: Temporomandibular joint (TMJ) pain Qualifiers: Laterality: right Qualified Code(s): M26.621 - Arthralgia of right temporomandibular joint Condition: Stable Critical Care Time: No Referrals: JONA URBINA [Primary Care Provider] - Instructions: Temporomandibular Joint (TMJ) Disorders (DC) Additional Instructions: Soft diet x 1 week, return if severe headaches, bleeding, vomiting, fever> 102 F ! Continue Keflex as directed and follow up with dentist!
[2017-11-10 23:12] VITALS: BP 123/91; PULSE 72; O2SAT 99
== END 2017-11-10 23:10 | disposition home or self-care (01) ==
LOC: ED 22:21
DX: M26.621 Arthralgia of right temporomandibular joint (principal); Z98.818 Other dental procedure status
CPT/HCPCS: 99283; A9270-GY

== ENCOUNTER 2018-07-08 20:22 | Emergency (ER) | payer MEDICAID, OTHER ==
[2018-07-08 21:20] LABS: BASOPHIL % 0.3 % (0.0-0.4); Basophil (Absolute #) 0.03 (0-0.4); Eosinophil % 2.5 % (0.00-5.0); Eosinophil (Absolute #) 0.23 (0-0.5); Granulocyte Absolute (ANC) 6.57 (1.4-6.9); Granulocytes % 70.1 % (36.0-66.0); Hematocrit 43.8 % (42-50); Hemoglobin 14.9 gm/dl (12.5-18.0); Lymphocyte (Absolute #) 1.35 (1.0-4.6); Lymphocytes % 14.4 % (24.0-44.0); Mean Cell Volume 91.6 fl (78-100); Mean Corpuscular Hemoglobin 31.2 pg (26-32); Mean Platelet Volume 8.7 fl (6-9.5); Monocyte (Absolute #) 1.19 (0.0-1.3); Monocytes % 12.7 % (0.0-12.0); Platelet Count 281 K/mm3 (150-450); Red Blood Count 4.78 M/mm3 (4.1-5.6); White Blood Count 9.4 K/mm3 (4.0-10.5)
[2018-07-08 21:31] LABS: ALBUMIN 4.8 g/dL (3.5-5.0); ALKALINE PHOSPHATASE 60 U/L (38-126); ANION GAP 13.9 MEQ/L (5-15); BLOOD UREA NITROGEN 9 mg/dL (9-20); CHLORIDE 100 mmol/L (98-107); Calcium 9.3 mg/dL (8.4-10.2); Carbon Dioxide 25 mmol/L (22-30); Creatinine 1 0.67 mg/dL (0.66-1.25); Glucose 86 mg/dL (74-106); Potassium 3.7 mmol/L (3.5-5.1); SGOT/AST 30 U/L (17-59); SGPT/ALT 37 U/L (0-50); SODIUM 135 mmol/L (137-145); Total Protein 7.8 g/dL (6.3-8.2)
[2018-07-08 21:53] LABS: Group A Strep NEGATIVE (NEGATIVE); INFLUENZA A NEGATIVE (NEGATIVE); INFLUENZA B NEGATIVE (NEGATIVE); RESPIRATORY SYNCTIAL VIRUS NEGATIVE (Negative)
--- NOTE | 2018-07-08 22:23 | ERPHSYRPT ---
- History of Present Illness Source: patient Exam Limitations: no limitations Patient Subjective Stated Complaint: pt is alert and oriented. pt is ambulatory with a steady gait. pt comes in with complaint of "flu like" symptoms including cough, fever, and chest pains. pt states that chest pain feels like pressure and more sharp pain when he coughs. pt states he is coughing up "green brown" mucous. pt breath sounds clear a-p bilat throughout. pt bowel sounds present. pt denies n/v/d. pt denies lightheadedness or dizziness. pt states these symptoms have been progressing for 2 weeks. Triage Nursing Assessment: see above Physician History: Pt is a 33 y/o male with a h/o cough with yellow-green sputum, subjective fever , and chest discomfort. Pt states, he was taking Nyquil OTC for the last two weeks, with no relief, and decided to come to the ER. Pt denies chills or sweats. No N/V/D or abdominal pain. Timing/Duration: week(s) Cough Quality/Degree: productive cough, sputum Modifying Factors: Improves With: nothing Associated Symptoms: fever, chest pain/soreness, cough Allergies/Adverse Reactions: codeine Allergy (Mild, Verified 11/10/17 22:45) diazepam [From Valium] Allergy (Mild, Verified 11/10/17 22:45) erythromycin base [Erythromycin Base] Allergy (Mild, Verified 11/10/17 22:45) Penicillins Allergy (Mild, Verified 11/10/17 22:45) Home Medications: Lisinopril 10 mg [Zestril 10 MG] 10 mg PO DAILY 02/06/16 [History] Buspirone HCl 5 mg [Buspar 5 mg] 5 mg PO BID 07/08/18 [History] Citalopram Hydrobromide 20 mg* [ceLEXa 20 MG] 20 mg PO DAILY 07/08/18 [ History] Hx Tetanus, Diphtheria Vaccination/Date Given: No Hx Influenza Vaccination/Date Given: No Hx Pneumococcal Vaccination/Date Given: No Immunizations Up to Date: Yes - Review of Systems Constitutional: Fever Eyes: No Symptoms Ears, Nose, & Throat: No Symptoms Respiratory: Cough, Dyspnea, Other (chest discomfort) Cardiac: No Chest Pain, No Edema, No Syncope Abdominal/Gastrointestinal: No Abdominal Pain, No Nausea, No Vomiting, No Diarrhea Musculoskeletal: No Back Pain, No Neck Pain Neurological: No Dizziness, No Focal Weakness, No Sensory Changes - Past Medical History Pertinent Past Medical History: Yes Neurological History: Migraines ENT History: No Pertinent History Cardiac History: Hypertension Respiratory History: Asthma Endocrine Medical History: No Pertinent History Musculoskeletal History: No Pertinent History GI Medical History: No Pertinent History History: No Pertinent History Psycho-Social History: Depression Male Reproductive Disorders: No Pertinent History Other Medical History: CHRONIC BACK PAIN,3 bulging disks. - Past Surgical History Past Surgical History: Yes Neuro Surgical History: No Pertinent History Cardiac: No Pertinent History Respiratory: No Pertinent History Gastrointestinal: Cholecystectomy, Hernia Repair Genitourinary: No Pertinent History Musculoskeletal: Orthopedic Surgery Male Surgical History: No Pertinent History Other Surgical History: tonsils, umb hernia repair, left hand ,carpal tunnel - Social History Smoking Status: Current every day smoker How long have you smoked: 2 years Exposure to second hand smoke: No Drug Use: none Patient Lives Alone: No - Nursing Vital Signs Nursing Vital Signs: Initial Vital Signs Temperature 99.3 F 07/08/18 20:31 Pulse Rate 113 H 07/08/18 20:31 Respiratory Rate 16 07/08/18 20:31 Blood Pressure 123/64 07/08/18 20:31 O2 Sat by Pulse Oximetry 96 07/08/18 20:31 Pain Scale Pain Intensity 6 - Physical Exam General Appearance: no apparent distress, alert Eye Exam: PERRL/EOMI, eyes nml inspection Ears, Nose, Throat Exam: normal ENT inspection, TMs normal, pharynx normal, moist mucous membranes Neck Exam: normal inspection, non-tender, supple, full range of motion Respiratory Exam: normal breath sounds, lungs clear, No respiratory distress Cardiovascular Exam: regular rate/rhythm, normal heart sounds Gastrointestinal/Abdomen Exam: soft, No tenderness Extremity Exam: normal inspection, normal range of motion Neurologic Exam: alert, oriented x 3, cooperative, normal mood/affect, sensation nml, No motor deficits SpO2: 96 - Course Nursing assessment & vital signs reviewed: Yes - Radiology Exams Chest X-ray Interpretation: Interpreted by me (No PNA or PTX. No CHF.) Ordered Tests: Active Orders 24 hr Category Date Time Status CHEST 2 VIEWS (PA AND LAT) Stat Exams 07/08/18 21:07 Taken CBC W DIFF Stat Lab 07/08/18 21:10 Completed CMP Stat Lab 07/08/18 21:10 Completed TROPONIN Q3H Lab 07/08/18 21:10 Completed TROPONIN Q3H Lab 07/09/18 00:15 Ordered TROPONIN Q3H Lab 07/09/18 03:15 Ordered TROPONIN Q3H Lab 07/09/18 06:15 Ordered TROPONIN Q3H Lab 07/09/18 09:15 Ordered Lab/Rad Data: Laboratory Result Diagrams 07/08/18 21:10 07/08/18 21:10 Laboratory Results 07/08/18 07/08/18 07/08/18 Range/Units 21:15 21:10 21:10 WBC (4.0-10.5) K/mm3 RBC (4.1-5.6) M/mm3 Hgb (12.5-18.0) gm/dl Hct (42-50) % MCV (78-100) fl MCH (26-32) pg MCHC (32-36) g/dl RDW (11.5-14.0) % Plt Count (150-450) K/mm3 MPV (6-9.5) fl Gran % (36.0-66.0) % Eos # (Auto) (0-0.5) Absolute Lymphs (auto) (1.0-4.6) Absolute Monos (auto) (0.0-1.3) Lymphocytes % (24.0-44.0) % Monocytes % (0.0-12.0) % Eosinophils % (0.00-5.0) % Basophils % (0.0-0.4) % Absolute Granulocytes (1.4-6.9) Basophils # (0-0.4) Sodium 135 L (137-145) mmol/L Potassium 3.7 (3.5-5.1) mmol/L Chloride 100 (98-107) mmol/L Carbon Dioxide 25 (22-30) mmol/L Anion Gap 13.9 (5-15) MEQ/L BUN 9 (9-20) mg/dL Creatinine 0.67 (0.66-1.25) mg/dL Estimated GFR > 60.0 ML/MIN Glucose 86 (74-106) mg/dL Calcium 9.3 (8.4-10.2) mg/dL Total Bilirubin 0.50 (0.2-1.3) mg/dL AST 30 (17-59) U/L ALT 37 (0-50) U/L Alkaline Phosphatase 60 (38-126) U/L Troponin I < 0.012 (0.000-0.034) ng/mL Serum Total Protein 7.8 (6.3-8.2) g/dL Albumin 4.8 (3.5-5.0) g/dL Influenza Type A Ag NEGATIVE (NEGATIVE) Influenza Type B Ag NEGATIVE (NEGATIVE) RSV (PCR) NEGATIVE (Negative) Group A Strep Antibody NEGATIVE (NEGATIVE) 07/08/18 Range/Units 21:10 WBC 9.4 (4.0-10.5) K/mm3 RBC 4.78 (4.1-5.6) M/mm3 Hgb 14.9 (12.5-18.0) gm/dl Hct 43.8 (42-50) % MCV 91.6 (78-100) fl MCH 31.2 (26-32) pg MCHC 34.0 (32-36) g/dl RDW 13.0 (11.5-14.0) % Plt Count 281 (150-450) K/mm3 MPV 8.7 (6-9.5) fl Gran % 70.1 H (36.0-66.0) % Eos # (Auto) 0.23 (0-0.5) Absolute Lymphs (auto) 1.35 (1.0-4.6) Absolute Monos (auto) 1.19 (0.0-1.3) Lymphocytes % 14.4 L (24.0-44.0) % Monocytes % 12.7 H (0.0-12.0) % Eosinophils % 2.5 (0.00-5.0) % Basophils % 0.3 (0.0-0.4) % Absolute Granulocytes 6.57 (1.4-6.9) Basophils # 0.03 (0-0.4) Sodium (137-145) mmol/L Potassium (3.5-5.1) mmol/L Chloride (98-107) mmol/L Carbon Dioxide (22-30) mmol/L Anion Gap (5-15) MEQ/L BUN (9-20) mg/dL Creatinine (0.66-1.25) mg/dL Estimated GFR ML/MIN Glucose (74-106) mg/dL Calcium (8.4-10.2) mg/dL Total Bilirubin (0.2-1.3) mg/dL AST (17-59) U/L ALT (0-50) U/L Alkaline Phosphatase (38-126) U/L Troponin I (0.000-0.034) ng/mL Serum Total Protein (6.3-8.2) g/dL Albumin (3.5-5.0) g/dL Influenza Type A Ag (NEGATIVE) Influenza Type B Ag (NEGATIVE) RSV (PCR) (Negative) Group A Strep Antibody (NEGATIVE) - Progress Progress: unchanged Air Movement: fair Progress Note: 07/08/18 22:20 Pt is a 33 y/o male with h/o two weeks of URI. Pt has negative flu, strep or RSV. CXR was negaive. I will give pt Doxycycline PO once and will e-scribe him ABX, for bronchitis. Blood Culture(s) Obtained: No Antibiotics given: Yes Will see patient in: office Counseled pt/family regarding: need for follow-up - Departure Time of Disposition: 22:23 Departure Disposition: Home Clinical Impression: Bronchitis Condition: Stable Critical Care Time: No Referrals: LUIS COSTA [Primary Care Provider] - Additional Instructions: Take ABX as ordered. F/U with PCP. Prescriptions: Doxycycline Hyclate 100 mg PO BID 10 Days #20 capsule
[2018-07-08 22:25] VITALS: PULSE 92
[2018-07-08] MEDS ORDERED: VIBRAMYCIN 100 MG IV ONE (22:30)
[2018-07-08] MEDS ORDERED: D5w 100ML Mini Bag 100 ML 100 ML IV ONE (22:30)
[2018-07-08 23:50] VITALS: BP 116/67; O2SAT 95
--- NOTE | 2018-07-09 09:18 | XRAY ---
Indication: Short of breath and cough 2 weeks. Comparison: January 28, 2017. PA/lateral chest demonstrates new right middle lobe discoid atelectasis with infiltrate not completely excluded in the right clinical setting. Remaining heart, lungs, and bony thorax unremarkable.
[2018-07-09] MEDS ORDERED: VIBRAMYCIN 100 MG*** 100 MG in Dextrose 5%/Water IV Soln. 100ML PLUS BAG 100 ML IV SCH (10:00)
== END 2018-07-08 23:53 | disposition home or self-care (01) ==
LOC: ED 20:22
DX: J40 Bronchitis, not specified as acute or chronic (principal); Z79.899 Other long term (current) drug therapy; I10 Essential (primary) hypertension
CPT/HCPCS: 36000; 36415; 71046; 80053; 84484; 85025; 87631; 87651; 96365; 96366; 99284

== ENCOUNTER 2018-07-10 13:40 | Emergency (ER) | payer MEDICAID ==
[2018-07-10] MEDS ORDERED: TORAdol 30 mg Injection IM ONE (14:33)
--- NOTE | 2018-07-10 14:33 | ERPHSYRPT ---
- History of Present Illness Time Seen by Provider: 07/10/18 14:29 Source: patient, family Exam Limitations: no limitations Patient Subjective Stated Complaint: "I have been short of breath past 2 weeks, I was seen in ER here last for sob and coughing, I was prescribed doxycycline for bronichitis. Im here today due to sob and coughing continues. My body hurts all over." Triage Nursing Assessment: AAox3, walked in, color fair, sob upon entering ER however resp easy after lying in bed for approx 5 min. Lung sounds with some scattered exp wheezes noted in right up lung guzman. Abd soft, states tender due to coughing. Bowel sounds heard. No edema to extremeties, VILLALOBOS well. Cooperative. Physician History: The patient is a 33-year-old male with a family member complaining of a cough with shortness of breath for 2 weeks. He was seen in this ER on 07/08/18 same complaint. At that time his chest x-ray RML infiltrate. He had a negative RSV , influenza A, influenza B, and strep test. He denies fever or chills. He was given doxycycline 100 mg 2 times a day. He did not have a cough suppressant. His past medical history is significant for hypertension and depression. Timing/Duration: week(s) (2), constant, gradual onset Cough Quality/Degree: moderate, productive cough, sputum Possible Cause: occasional episodes Modifying Factors: Improves With: coughing Associated Symptoms: cough, shortness of breath, No fever, No chills, No nasal congestion, No sore throat Allergies/Adverse Reactions: codeine Allergy (Mild, Verified 11/10/17 22:45) diazepam [From Valium] Allergy (Mild, Verified 11/10/17 22:45) erythromycin base [Erythromycin Base] Allergy (Mild, Verified 11/10/17 22:45) Penicillins Allergy (Mild, Verified 11/10/17 22:45) Home Medications: Lisinopril 10 mg [Zestril 10 MG] 10 mg PO DAILY 02/06/16 [History] Buspirone HCl 5 mg [Buspar 5 mg] 5 mg PO BID 07/08/18 [History] Citalopram Hydrobromide 20 mg* [ceLEXa 20 MG] 20 mg PO DAILY 07/08/18 [ History] Hx Tetanus, Diphtheria Vaccination/Date Given: Yes ("less than 10 years") Hx Influenza Vaccination/Date Given: No Hx Pneumococcal Vaccination/Date Given: No - Review of Systems Constitutional: No Fever, No Chills Eyes: No Symptoms Ears, Nose, & Throat: No Symptoms Respiratory: Cough, Dyspnea on Exertion (MARINELLI) Cardiac: Chest Pain (pain with cough) Abdominal/Gastrointestinal: No Abdominal Pain, No Nausea, No Vomiting, No Diarrhea Genitourinary Symptoms: No Dysuria Musculoskeletal: No Back Pain, No Neck Pain Skin: No Rash Neurological: No Dizziness, No Focal Weakness, No Sensory Changes Psychological: No Symptoms Endocrine: No Symptoms Hematologic/Lymphatic: No Symptoms Immunological/Allergic: No Symptoms All Other Systems: Reviewed and Negative - Past Medical History Pertinent Past Medical History: Yes Neurological History: Migraines ENT History: No Pertinent History Cardiac History: Hypertension Respiratory History: Asthma Endocrine Medical History: No Pertinent History Musculoskeletal History: No Pertinent History GI Medical History: No Pertinent History History: No Pertinent History Psycho-Social History: Depression Male Reproductive Disorders: No Pertinent History Other Medical History: CHRONIC BACK PAIN,3 bulging disks. - Past Surgical History Past Surgical History: Yes Neuro Surgical History: No Pertinent History Cardiac: No Pertinent History Respiratory: No Pertinent History Gastrointestinal: Cholecystectomy, Hernia Repair Genitourinary: No Pertinent History Musculoskeletal: Orthopedic Surgery Male Surgical History: No Pertinent History Other Surgical History: tonsils, umb hernia repair, left hand ,carpal tunnel - Social History Smoking Status: Current every day smoker How long have you smoked: 2 yrs Exposure to second hand smoke: Yes Drug Use: none Patient Lives Alone: No - Nursing Vital Signs Nursing Vital Signs: Initial Vital Signs Temperature 98.9 F 07/10/18 13:52 Pulse Rate 118 H 07/10/18 13:52 Respiratory Rate 20 07/10/18 13:52 Blood Pressure 132/91 07/10/18 13:52 O2 Sat by Pulse Oximetry 92 L 07/10/18 13:52 Pain Scale Pain Intensity 7 - Physical Exam General Appearance: mild distress Eye Exam: PERRL/EOMI, eyes nml inspection Ears, Nose, Throat Exam: normal ENT inspection, TMs normal, pharynx normal, moist mucous membranes Neck Exam: normal inspection, non-tender, supple, full range of motion Respiratory Exam: lungs clear Cardiovascular Exam: tachycardia Gastrointestinal/Abdomen Exam: soft, No tenderness Rectal Exam: not done Back Exam: normal inspection, No CVA tenderness, No vertebral tenderness Extremity Exam: normal inspection, normal range of motion Neurologic Exam: alert, oriented x 3, cooperative, normal mood/affect, sensation nml, No motor deficits Skin Exam: normal color, warm, dry, No rash Lymphatic Exam: No adenopathy SpO2 Interpretation: borderline oxygenation SpO2: 92 O2 Delivery: Room Air - Radiology Exams Chest X-ray Interpretation: Interpreted by me, Negative, Other (2V chest with interval clearing of RML infiltrate, comp 2V chest 07/08/18.) Ordered Tests: Active Orders 24 hr Category Date Time Status CHEST 2 VIEWS (PA AND LAT) Stat Exams 07/10/18 14:28 Taken Respiratory Nebulizer STAT RT 07/10/18 14:36 Active Medication Summary Discontinued Medications Generic Name Dose Route Start Last Admin Trade Name Freq PRN Reason Stop Dose Admin Albuterol Sulfate 2.5 mg 07/10/18 14:35 Proventil 2.5 Mg/3 Ml Neb IH 07/10/18 14:36 STAT ONE Ceftriaxone Sodium 1,000 mg 07/10/18 14:34 07/10/18 14:46 Rocephin 1000 Mg Inj IM 07/10/18 14:35 1,000 mg STAT ONE Administration Ceftriaxone Sodium Confirm 07/10/18 14:40 Rocephin 1000 Mg Inj Administered 07/10/18 14:41 Dose 1,000 mg .ROUTE .STK-MED ONE Dexamethasone Sodium Phosphate 10 mg 07/10/18 14:34 07/10/18 14:46 Decadron 10mg Inj. IM 07/10/18 14:35 10 mg STAT ONE Administration Dexamethasone Sodium Phosphate Confirm 07/10/18 14:40 Decadron 10mg Inj. Administered 07/10/18 14:41 Dose 10 mg .ROUTE .STK-MED ONE Ketorolac Tromethamine 60 mg 07/10/18 14:33 07/10/18 14:47 Toradol 30 Mg Injection IM 07/10/18 14:34 60 mg STAT ONE Administration Ketorolac Tromethamine Confirm 07/10/18 14:40 Toradol 30 Mg Injection Administered 07/10/18 14:41 Dose 60 mg .ROUTE .STK-MED ONE - Progress Progress: improved Air Movement: good Blood Culture(s) Obtained: No Antibiotics given: Yes Counseled pt/family regarding: lab results, diagnosis, need for follow-up, rad results - Departure Time of Disposition: 15:04 Departure Disposition: Home Clinical Impression: Bronchitis Condition: Stable Critical Care Time: No Referrals: LUIS COSTA [Primary Care Provider] - Additional Instructions: You have had a clearing of the infiltrate that was seen on your chest x-ray from 07/08/18. A chest x-ray now looks normal. You were given a breathing treatment, Rocephin 1 g by IM, Toradol 60 mg by IM, and Decadron 10 mg by IM in the ER. Take azithromycin 500 mg today, followed by 250 mg daily for days 2 through 5. Take Tessalon 100 mg every 8 hours as needed for cough. Tomorrow begin prednisone 60 mg daily for 5 days. Follow-up with your primary medical doctor on Thursday or Thursday. Prescriptions: Benzonatate [Tessalon Perle] 100 mg PO Q8H PRN PRN #12 capsule PRN Reason: Cough Azithromycin 250 mg [Zithromax 250 MG TABLET] 250 mg PO ZPACK #6 tablet predniSONE [Prednisone] 60 mg PO DAILY #15 tablet
[2018-07-10] MEDS ORDERED: Rocephin 1000 MG INJ IM ONE (14:34)
[2018-07-10] MEDS ORDERED: DECADRON 10MG INJ. IM ONE (14:34)
[2018-07-10] MEDS ORDERED: PROVENTIL 2.5 MG/3 ML NEB IH ONE ×2 (14:35→15:02)
[2018-07-10] MEDS ORDERED: TORAdol 30 mg Injection ONE (14:40)
[2018-07-10] MEDS ORDERED: Rocephin 1000 MG INJ ONE (14:40)
[2018-07-10] MEDS ORDERED: DECADRON 10MG INJ. ONE (14:40)
[2018-07-10 15:09] VITALS: O2SAT 92
[2018-07-10 15:25] VITALS: BP 116/73; PULSE 110
--- NOTE | 2018-07-11 00:32 | XRAY ---
Indication: Cough. Comparison: July 08, 2018. PA/lateral chest demonstrates clearing of the previous right middle lobe opacity. No focal infiltrate, consolidation, or large effusion. Heart is not enlarged. Bony thorax intact again with minimal degenerative changes. Impression: Nonacute chest.
== END 2018-07-10 15:48 | disposition home or self-care (01) ==
LOC: ED 13:40
DX: J40 Bronchitis, not specified as acute or chronic (principal); F32.9 Major depressive disorder, single episode, unspecified; Z79.899 Other long term (current) drug therapy; I10 Essential (primary) hypertension; J45.909 Unspecified asthma, uncomplicated
CPT/HCPCS: 71046; 94150; 94640; 96372; 99284; J0696; J1100; J1885; J7609; A9270-GY

== ENCOUNTER 2018-08-18 22:57 | Emergency (ER) | payer MEDICAID ==
--- NOTE | 2018-08-18 23:24 | ERPHSYRPT ---
- History of Present Illness Time Seen by Provider: 08/18/18 23:19 Source: patient Exam Limitations: no limitations Patient Subjective Stated Complaint: pt is alert and oriented. pt comes in with c/o right sided shoulder pain. pt states he injured it two days ago while stretching. pt is able to move arm. Triage Nursing Assessment: see above Physician History: Pt started c/o pain in his right posterior shoulder for one week, radiating to his left arm, with tingling, numbness, denies arm or hand weakness, no fall, injury, headaches, chest pain, cough SOB, nausea, fever or other complaints. Occurred: days ago (7) Method of Injury: unknown Quality: constant Severity of Pain-Max: moderate Severity of Pain-Current: moderate Extremities Pain Location: shoulder: right Modifying Factors: Improves With: nothing Associated Symptoms: neck pain Allergies/Adverse Reactions: codeine Allergy (Mild, Verified 11/10/17 22:45) diazepam [From Valium] Allergy (Mild, Verified 11/10/17 22:45) erythromycin base [Erythromycin Base] Allergy (Mild, Verified 11/10/17 22:45) Penicillins Allergy (Mild, Verified 11/10/17 22:45) Home Medications: Lisinopril 10 mg [Zestril 10 MG] 10 mg PO DAILY 02/06/16 [History] Buspirone HCl 5 mg [Buspar 5 mg] 5 mg PO BID 07/08/18 [History] Citalopram Hydrobromide 20 mg* [ceLEXa 20 MG] 20 mg PO DAILY 07/08/18 [ History] Hx Tetanus, Diphtheria Vaccination/Date Given: Yes ("less than 10 years") Hx Influenza Vaccination/Date Given: No Hx Pneumococcal Vaccination/Date Given: No Immunizations Up to Date: Yes - Review of Systems Constitutional: No Symptoms Ears, Nose, & Throat: No Symptoms Respiratory: No Symptoms Cardiac: No Symptoms Musculoskeletal: Other (right porterior nshoulder and neck pain) All Other Systems: Reviewed and Negative - Past Medical History Pertinent Past Medical History: Yes Neurological History: Migraines ENT History: No Pertinent History Cardiac History: Hypertension Respiratory History: Asthma Endocrine Medical History: No Pertinent History Musculoskeletal History: No Pertinent History GI Medical History: No Pertinent History History: No Pertinent History Psycho-Social History: Depression Male Reproductive Disorders: No Pertinent History Other Medical History: CHRONIC BACK PAIN,3 bulging disks. - Past Surgical History Past Surgical History: Yes Neuro Surgical History: No Pertinent History Cardiac: No Pertinent History Respiratory: No Pertinent History Gastrointestinal: Cholecystectomy, Hernia Repair Genitourinary: No Pertinent History Musculoskeletal: Orthopedic Surgery Male Surgical History: No Pertinent History Other Surgical History: tonsils, umb hernia repair, left hand ,carpal tunnel - Social History Smoking Status: Current every day smoker How long have you smoked: 3 years Exposure to second hand smoke: Yes Drug Use: none Patient Lives Alone: No - Nursing Vital Signs Nursing Vital Signs: Initial Vital Signs Temperature 98.5 F 08/18/18 23:02 Pulse Rate 123 H 08/18/18 23:02 Respiratory Rate 18 08/18/18 23:02 Blood Pressure 120/87 08/18/18 23:02 O2 Sat by Pulse Oximetry 98 08/18/18 23:02 Pain Scale Pain Intensity 7 - Physical Exam General Appearance: no apparent distress Eyes, Ears, Nose, Throat Exam: normal ENT inspection Neck Exam: normal inspection Cardiovascular/Respiratory Exam: chest non-tender, normal breath sounds, regular rate/rhythm, heart sounds normal, no ecchymosis, no JVD, no respiratory distress Abdominal Exam: non-tender, soft Back Exam: normal inspection, No CVA tenderness, No vertebral tenderness Shoulder Exam: normal inspection, no evidence of injury, normal ROM, soft tissue tenderness (posterior shoulder, trapezoid muscle area) Elbow/Forearm Exam: normal inspection, non-tender Neuro/Tendon Exam: normal sensation, normal motor functions, normal tendon functions, No motor deficit Mental Status Exam: alert, oriented x 3, cooperative Skin Exam: normal color, warm, dry, No rash SpO2 Interpretation: normal SpO2: 98 O2 Delivery: Room Air - Course Nursing assessment & vital signs reviewed: Yes - Radiology Exams Right Shoulder X-ray Interpretation: Interpreted by me, Negative C-Spine X-ray Interpretation: Interpreted by me, Other (straightening of the lordosis, ) Ordered Tests: Active Orders 24 hr Category Date Time Status Sling Application STAT Care 08/19/18 00:10 Ordered CERVICAL SPINE (2 OR 3 VIEW) Stat Exams 08/18/18 23:19 Taken SHOULDER Stat Exams 08/18/18 23:19 Taken - Progress Progress: unchanged Progress Note: 08/19/18 00:14 We discussed his X ray findings, and the diagnosis,he was supplied with a sling to rest x 3-4 days, apply moist heat to painful muscles, and follow up with his physician in 2-3 days. He is being discharged home on Prednisone, Ultram and Flexeril. Counseled pt/family regarding: diagnosis, need for follow-up, rad results - Departure Time of Disposition: 00:16 Departure Disposition: Home Clinical Impression: Cervical radiculopathy Condition: Stable Critical Care Time: No Referrals: LUIS COSTA [Primary Care Provider] - Instructions: Radiculopathy (DC) Additional Instructions: Rest in sling x 3-4 days, apply moist heat to painful muscles, and follow up with your physician in 2-3 days, return if severe, sudden arm weakness, numbness , severe headaches! Prescriptions: Cyclobenzaprine HCl 10 mg [Cyclobenzaprine 10 MG] 10 mg PO TID #30 tablet Prednisone 20 mg [Deltasone 20 mg] 20 mg PO BID 5 Days #10 tablet Tramadol HCl 50 mg [Ultram 50 mg] 50 mg PO Q6H PRN #10 tablet PRN Reason: Pain
[2018-08-19 00:03] VITALS: BP 118/75; PULSE 100
[2018-08-19 00:16] VITALS: O2SAT 98
--- NOTE | 2018-08-19 08:43 | XRAY ---
Indication: Neck and right shoulder pain. No known injury. Comparison: CT cervical spine January 28, 2017. 4 views of the cervical spine again demonstrates slight reversal of the cervical lordosis, positional versus paraspinal spasm. Vertebral body heights and disc spaces maintained. No new/acute findings.
--- NOTE | 2018-08-19 08:43 | XRAY ---
Indication: Pain 1 week. No known injury. Comparison: None 3 views of the right shoulder demonstrates tiny right lung base calcified granuloma. No other bony, articular, or soft tissue abnormalities.
== END 2018-08-19 00:32 | disposition home or self-care (01) ==
LOC: ED 22:57
DX: M54.12 Radiculopathy, cervical region (principal); M54.2 Cervicalgia; M25.511 Pain in right shoulder; M79.601 Pain in right arm; X50.0XXA Overexertion from strenuous movement or load, initial encounter; F32.9 Major depressive disorder, single episode, unspecified; R20.0 Anesthesia of skin
CPT/HCPCS: 72040; 73030; 99283

== ENCOUNTER 2021-03-10 22:12 | Emergency (ER) | payer OTHER ==
[2021-03-10] MEDS ORDERED: CLINDAMYCIN-D5W 900 MG/50 ML*** 900 MG/50 ML BAG IV STA (22:33)
[2021-03-10] MEDS ORDERED: CLINDAMYCIN-D5W 900 MG/50 ML*** 900 MG/50 ML BAG IV ONE (22:37)
--- NOTE | 2021-03-10 22:40 | ERPHSYRPT ---
- History of Present Illness Time Seen by Provider: 03/10/21 22:35 Source: patient Exam Limitations: no limitations Physician History: Patient is a 35-year-old male who presents with a complaint of a rash the left elbow and arm. He says it started on Thursday or 3 days ago. He denies any needle use or any insect bite of which she is aware of. The area is red it is getting larger and it has heat. Timing/Duration: day(s) (3) Quality: painful Severity: moderate Location: extremities Possible Causes: no cause identified Associated Symptoms: rash Allergies/Adverse Reactions: codeine Allergy (Mild, Verified 03/10/21 22:23) diazepam [From Valium] Allergy (Mild, Verified 03/10/21 22:23) erythromycin base [Erythromycin Base] Allergy (Mild, Verified 03/10/21 22:23) Penicillins Allergy (Mild, Verified 03/10/21 22:23) Hx Tetanus, Diphtheria Vaccination/Date Given: Yes ("less than 10 years") Hx Influenza Vaccination/Date Given: No Hx Pneumococcal Vaccination/Date Given: No - Review of Systems Constitutional: No Fever, No Chills Eyes: No Symptoms Ears, Nose, & Throat: No Symptoms Respiratory: No Cough, No Dyspnea Cardiac: No Chest Pain, No Edema, No Syncope Abdominal/Gastrointestinal: No Abdominal Pain, No Nausea, No Vomiting, No Diarrhea Genitourinary Symptoms: No Dysuria Musculoskeletal: No Back Pain, No Neck Pain Skin: Cellulitis, Rash Neurological: No Dizziness, No Focal Weakness, No Sensory Changes Psychological: No Symptoms Endocrine: No Symptoms All Other Systems: Reviewed and Negative - Past Medical History Pertinent Past Medical History: Yes Neurological History: No Pertinent History ENT History: No Pertinent History Cardiac History: Hypertension Respiratory History: Asthma Endocrine Medical History: No Pertinent History Musculoskeletal History: No Pertinent History GI Medical History: No Pertinent History History: No Pertinent History Psycho-Social History: Depression Male Reproductive Disorders: No Pertinent History Other Medical History: CHRONIC BACK PAIN,3 bulging disks. - Past Surgical History Past Surgical History: Yes Neuro Surgical History: No Pertinent History Cardiac: No Pertinent History Respiratory: No Pertinent History Gastrointestinal: Cholecystectomy, Hernia Repair Genitourinary: No Pertinent History Musculoskeletal: Orthopedic Surgery Male Surgical History: No Pertinent History Other Surgical History: tonsils, umb hernia repair, left hand ,carpal tunnel - Social History Smoking Status: Current every day smoker How long have you smoked: 3 years Exposure to second hand smoke: Yes Drug Use: marijuana Patient Lives Alone: No - Nursing Vital Signs Nursing Vital Signs: Initial Vital Signs Temperature 97.2 F 03/10/21 22:14 Pulse Rate 109 H 03/10/21 22:14 Respiratory Rate 18 03/10/21 22:14 Blood Pressure 144/87 03/10/21 22:14 O2 Sat by Pulse Oximetry 98 03/10/21 22:14 Pain Scale Pain Intensity 6 - Physical Exam General Appearance: no apparent distress Eye Exam: PERRL/EOMI, eyes nml inspection Ears, Nose, Throat Exam: normal ENT inspection, pharynx normal, moist mucous membranes Neck Exam: normal inspection, non-tender, supple, full range of motion Respiratory Exam: normal breath sounds, lungs clear, No respiratory distress Cardiovascular Exam: regular rate/rhythm, normal heart sounds Gastrointestinal/Abdomen Exam: soft, mass, No tenderness Back Exam: normal inspection, normal range of motion, No CVA tenderness, No vertebral tenderness Extremity Exam: other (Area cellulitis left upper extremity) Neurologic Exam: alert, oriented x 3, cooperative Skin Exam: warm (Erythema and heat), other SpO2 Interpretation: normal SpO2: 98 O2 Delivery: Room Air - Course Nursing assessment & vital signs reviewed: Yes Ordered Tests: Medication Summary Generic Name Dose Route Start Last Admin Trade Name Tonyq PRN Reason Stop Dose Admin Clindamycin HCl/Dextrose 900 mg in 50 mls @ 100 mls/hr 03/10/21 22:33 Clindamycin-D5w 900 Mg/50 Ml IV 03/10/21 23:02 STAT STA - Progress Progress: unchanged - Departure Departure Disposition: Home Clinical Impression: Cellulitis Condition: Stable Critical Care Time: No Referrals: ODILON TALAVERA [Primary Care Provider] - Instructions: Cellulitis (Skin Infection), Adult (DC) Prescriptions: clindamycin HCL [Cleocin HCl] 300 mg PO Q8H 10 Days #30
[2021-03-10 23:20] VITALS: BP 126/73; PULSE 95; O2SAT 97
== END 2021-03-10 23:22 | disposition home or self-care (01) ==
LOC: ED 22:12
DX: L03.818 Cellulitis of other sites (principal)
CPT/HCPCS: 36000; 99284

== ENCOUNTER 2021-04-04 14:06 | Emergency (ER) | payer OTHER ==
[2012-04-25 07:53] VITALS: BP 135/69
--- NOTE | 2021-04-04 14:13 | ERPHSYRPT ---
- History of Present Illness Time Seen by Provider: 04/04/21 14:13 Source: patient Exam Limitations: no limitations Physician History: This is a 35-year-old white male who was at work yesterday evening and noticed pain in his left ankle. He does not recall specifically if he fell or twisted it. However, today the pain is worse. Patient wants an x-ray to determine if there is a fracture or dislocation. Method of Injury: unknown, other Occurred: yesterday Quality: aching Severity of Pain-Max: mild Severity of Pain-Current: mild Lower Extremities Pain: ankle: left Modifying Factors: Improves With: movement Associated Symptoms: other (Hurts to bear weight but can do so) Allergies/Adverse Reactions: codeine Allergy (Mild, Verified 04/04/21 14:16) diazepam [From Valium] Allergy (Mild, Verified 04/04/21 14:16) erythromycin base [Erythromycin Base] Allergy (Mild, Verified 04/04/21 14:16) Penicillins Allergy (Mild, Verified 04/04/21 14:16) Hx Tetanus, Diphtheria Vaccination/Date Given: Yes ("less than 10 years") Hx Influenza Vaccination/Date Given: No Hx Pneumococcal Vaccination/Date Given: No Travel Risk - International Travel Have you traveled outside of the country in past 3 weeks: No - Coronavirus Screening Are you exhibiting any of the following symptoms?: No Close contact with a COVID-19 positive Pt in past 14-21 Days: No - Vaccine Status Have you recieved a Covid-19 vaccination: No - Review of Systems Constitutional: No Symptoms Eyes: No Symptoms Ears, Nose, & Throat: No Symptoms Respiratory: No Symptoms Cardiac: No Symptoms Abdominal/Gastrointestinal: No Symptoms Genitourinary Symptoms: No Symptoms Musculoskeletal: Joint Pain (Left ankle) Skin: No Symptoms Neurological: No Symptoms Psychological: No Symptoms Endocrine: No Symptoms Hematologic/Lymphatic: No Symptoms Immunological/Allergic: No Symptoms All Other Systems: Reviewed and Negative - Past Medical History Pertinent Past Medical History: Yes Neurological History: No Pertinent History ENT History: No Pertinent History Cardiac History: Hypertension Respiratory History: Asthma Endocrine Medical History: No Pertinent History Musculoskeletal History: No Pertinent History GI Medical History: No Pertinent History History: No Pertinent History Psycho-Social History: Depression Male Reproductive Disorders: No Pertinent History Other Medical History: CHRONIC BACK PAIN,3 bulging disks. - Past Surgical History Past Surgical History: Yes Neuro Surgical History: No Pertinent History Cardiac: No Pertinent History Respiratory: No Pertinent History Gastrointestinal: Cholecystectomy, Hernia Repair Genitourinary: No Pertinent History Musculoskeletal: Orthopedic Surgery Male Surgical History: No Pertinent History Other Surgical History: tonsils, umb hernia repair, left hand ,carpal tunnel - Social History Smoking Status: Current every day smoker How long have you smoked: 3 years Exposure to second hand smoke: Yes Drug Use: marijuana Patient Lives Alone: No - Nursing Vital Signs Nursing Vital Signs: Initial Vital Signs Temperature 96.4 F 04/04/21 14:12 Pulse Rate 98 H 04/04/21 14:12 Respiratory Rate 18 04/04/21 14:12 Blood Pressure 139/84 04/04/21 14:12 O2 Sat by Pulse Oximetry 98 04/04/21 14:12 Pain Scale Pain Intensity 7 - Physical Exam General Appearance: no apparent distress Eyes, Ears, Nose, Throat Exam: normal ENT inspection Neck Exam: normal inspection, non-tender, supple, full range of motion Cardiovascular/Respiratory Exam: chest non-tender, no respiratory distress Gastrointestinal/Abdominal Exam: non-tender Back Exam: normal inspection, normal range of motion, No CVA tenderness, No vertebral tenderness Hips Exam: bilateral: non-tender, normal inspection, normal range of motion, no evidence of injury Legs Exam: bilateral leg: non-tender, normal inspection, normal range of motion, no evidence of injury Knees Exam: bilateral knee: non-tender, normal inspection, normal range of motion, no evidence of injury Ankle Exam: right ankle: non-tender, left ankle: normal inspection, normal range of motion, no evidence of injury, pain, soft tissue tenderness Foot Exam: bilateral foot: non-tender, normal inspection, normal range of motion, no evidence of injury Neuro/Tendon Exam: normal sensation, normal motor functions, normal tendon functions Mental Status Exam: alert, oriented x 3, cooperative Skin Exam: normal color, warm, dry SpO2 Interpretation: normal O2 Delivery: Room Air - Course Nursing assessment & vital signs reviewed: Yes Ordered Tests: Active Orders 24 hr Category Date Time Status ANKLE (3 VIEWS) Stat Exams 04/04/21 14:42 Completed - Progress Progress: unchanged Progress Note: 04/04/21 15:06 X-ray of left ankle shows no acute fracture or dislocation. There is evidence of a heel spur. Counseled pt/family regarding: diagnosis, need for follow-up, rad results - Departure Departure Disposition: Home Clinical Impression: Left ankle pain, Heel spur Condition: Stable Critical Care Time: No Referrals: ODILON TALAVERA [Primary Care Provider] - Follow up/PCP as directed ALLY CULVER DPM [ACTIVE STAFF] - Follow up/PCP as directed Additional Instructions: Ice pack/ice bath 3 times a day for the next 48 hours. May use Tylenol and ibuprofen for pain control. Follow-up with podiatry, Dr. Rose, in his office. Call the office (information provided) to make arrangements for follow-up appointment
--- NOTE | 2021-04-04 15:02 | XRAY ---
Indication: Pain. No known injury. Comparison: None 3 view left ankle demonstrates tiny posterior heel spur. No other bony, articular, or soft tissue abnormalities.
== END 2021-04-04 15:28 | disposition home or self-care (01) ==
LOC: ED 14:06
DX: M25.572 Pain in left ankle and joints of left foot (principal); M77.32 Calcaneal spur, left foot; Z72.0 Tobacco use
CPT/HCPCS: 73610; 99283

== ENCOUNTER 2021-06-23 14:38 | Emergency (ER) | payer OTHER ==
--- NOTE | 2021-06-23 14:58 | ERPHSYRPT ---
- History of Present Illness Time Seen by Provider: 06/23/21 14:53 Source: patient Exam Limitations: no limitations Patient Subjective Stated Complaint: Pt states "On I lifted a cough and think I kinked my back and on thursday I could barely walk." Triage Nursing Assessment: Pt presented alert and oriented X 3, skin pwd Pt ambulates with an uprght stiff gait. pt will grunt and gasp when his back spasms." Physician History: pt lifted a couch last week and developed immediate pain in upper back/ low chest wraping around. pain with deep breath but not short of breath tender to palpation repoduces pain and muscle tightness noted in posterior thorax. No trauma. abd soft and nontender without masses or distension. no fever, no hx cancer. no urinary or bowel symptoms. no n/v or abd pain. initial radiation down legs with his ongoing sciatica resolved and has normal sensation now. Timing/Duration: day(s) Method of Injury: lifting Quality: radiating, stabbing, throbbing Back Pain Location: T-spine, paraspinous muscles Severity of Pain-Max: moderate Severity of Pain-Current: moderate Associated Symptoms: muscle spasms Previous symptoms: different symptoms Allergies/Adverse Reactions: codeine Allergy (Mild, Verified 04/04/21 14:16) diazepam [From Valium] Allergy (Mild, Verified 04/04/21 14:16) erythromycin base [Erythromycin Base] Allergy (Mild, Verified 04/04/21 14:16) Penicillins Allergy (Mild, Verified 04/04/21 14:16) Hx Tetanus, Diphtheria Vaccination/Date Given: Yes ("less than 10 years") Hx Influenza Vaccination/Date Given: No Hx Pneumococcal Vaccination/Date Given: No Immunizations Up to Date: Yes Travel Risk - International Travel Have you traveled outside of the country in past 3 weeks: No - Coronavirus Screening Are you exhibiting any of the following symptoms?: No - Vaccine Status Have you recieved a Covid-19 vaccination: No - Review of Systems Constitutional: No Fever, No Chills Eyes: No Symptoms Ears, Nose, & Throat: No Symptoms Respiratory: No Cough, No Dyspnea Cardiac: No Chest Pain, No Edema, No Syncope Abdominal/Gastrointestinal: No Abdominal Pain, No Nausea, No Vomiting, No Diarrhea Genitourinary Symptoms: No Dysuria Musculoskeletal: Back Pain, No Neck Pain Skin: No Rash Neurological: No Dizziness, No Focal Weakness, No Sensory Changes Psychological: No Symptoms Endocrine: No Symptoms All Other Systems: Reviewed and Negative - Past Medical History Pertinent Past Medical History: Yes Neurological History: No Pertinent History ENT History: No Pertinent History Cardiac History: Hypertension Respiratory History: Asthma Endocrine Medical History: No Pertinent History Musculoskeletal History: No Pertinent History GI Medical History: No Pertinent History History: No Pertinent History Psycho-Social History: Depression Male Reproductive Disorders: No Pertinent History Other Medical History: CHRONIC BACK PAIN,3 bulging disks. - Past Surgical History Past Surgical History: Yes Neuro Surgical History: No Pertinent History Cardiac: No Pertinent History Respiratory: No Pertinent History Gastrointestinal: Cholecystectomy, Hernia Repair Genitourinary: No Pertinent History Musculoskeletal: Orthopedic Surgery Male Surgical History: No Pertinent History Other Surgical History: tonsils, umb hernia repair, left hand ,carpal tunnel - Social History Smoking Status: Current every day smoker How long have you smoked: 3 years Exposure to second hand smoke: Yes Drug Use: marijuana Patient Lives Alone: No - Nursing Vital Signs Nursing Vital Signs: Initial Vital Signs Temperature 97.8 F 06/23/21 14:44 Pulse Rate 120 H 06/23/21 14:44 Respiratory Rate 20 06/23/21 14:44 Blood Pressure 170/110 06/23/21 14:44 O2 Sat by Pulse Oximetry 99 06/23/21 14:44 Pain Scale Pain Intensity 5 - Physical Exam General Appearance: no apparent distress, alert Eye Exam: PERRL/EOMI, eyes nml inspection Neck Exam: normal inspection, non-tender, supple, full range of motion, No meningismus, No midline tenderness Respiratory Exam: normal breath sounds, lungs clear, No respiratory distress Cardiovascular Exam: regular rate/rhythm, normal heart sounds Gastrointestinal Exam: soft, No tenderness, No mass Rectal Exam: deferred Back Exam: muscle spasm, other (tender posterior subscapular areas. 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 as tested, normal mood/affect, nml station & gait, sensation nml, No motor deficits Skin Exam: normal color, warm, dry, No rash SpO2 Interpretation: normal SpO2: 99 O2 Delivery: Room Air - Course Nursing assessment & vital signs reviewed: Yes EKG Interpreted by Me: Sinus Rhythm, Left Paradox Deviation, NORMAL INTERVALS, Non- specific ST Changes - Radiology Exams Chest X-ray Interpretation: Reviewed by me, No Pneumothorax, Other (calcified granulomas) Ordered Tests: Active Orders 24 hr Category Date Time Status EKG-ER Only STAT Care 06/23/21 17:38 Active CHEST 2 VIEWS (PA AND LAT) Stat Exams 06/23/21 15:01 Taken CBC W DIFF Stat Lab 06/23/21 18:03 Completed CMP Stat Lab 06/23/21 18:03 Completed LIPASE Stat Lab 06/23/21 18:03 Completed Lactic Acid Stat Lab 06/23/21 18:05 Completed TROPONIN Q3H Lab 06/23/21 18:03 Completed TROPONIN Q3H Lab 06/23/21 20:45 Ordered TROPONIN Q3H Lab 06/23/21 23:45 Ordered TROPONIN Q3H Lab 06/24/21 02:45 Ordered TROPONIN Q3H Lab 06/24/21 05:45 Ordered UA W/RFX UR CULTURE Stat Lab 06/23/21 15:03 Completed Medication Summary Discontinued Medications Generic Name Dose Route Start Last Admin Trade Name Freq PRN Reason Stop Dose Admin Hydromorphone HCl 1 mg 06/23/21 17:37 06/23/21 17:44 Hydromorphone 1 Mg/1ml Inj 1 Mg/Ml Syringe IV 06/23/21 17:38 1 mg STAT ONE Administration Hydromorphone HCl Confirm 06/23/21 17:42 Hydromorphone 1 Mg/1ml Inj 1 Mg/Ml Syringe Administered 06/23/21 17:43 Dose 1 mg .ROUTE .STK-MED ONE Sodium Chloride 1,000 mls @ 999 mls/hr 06/23/21 17:37 06/23/21 18:51 Sodium Chloride 0.9% 1000 Ml IV 06/23/21 18:37 Infused .Q1H1M STA Infusion Sodium Chloride Confirm 06/23/21 17:42 Sodium Chloride 0.9% 1000 Ml Administered 06/23/21 17:43 Dose 1,000 mls @ ud .ROUTE .STK-MED ONE Ketorolac Tromethamine 60 mg 06/23/21 14:59 06/23/21 15:06 Ketorolac Tromethamine 30 Mg/Ml Inj IM 06/23/21 15:00 60 mg STAT ONE Administration Ketorolac Tromethamine Confirm 06/23/21 15:05 Ketorolac Tromethamine 30 Mg/Ml Inj Administered 06/23/21 15:06 Dose 60 mg .ROUTE .STK-MED ONE Ketorolac Tromethamine Confirm 06/23/21 15:07 Ketorolac Tromethamine 30 Mg/Ml Inj Administered 06/23/21 15:08 Dose 30 mg .ROUTE .STK-MED ONE Ondansetron HCl 4 mg 06/23/21 17:37 06/23/21 17:44 Ondansetron Hcl 4 Mg/2 Ml Vial IV 06/23/21 17:38 4 mg STAT ONE Administration Ondansetron HCl Confirm 06/23/21 17:42 Ondansetron Hcl 4 Mg/2 Ml Vial Administered 06/23/21 17:43 Dose 4 mg .ROUTE .STK-MED ONE Orphenadrine Citrate 60 mg 06/23/21 14:59 06/23/21 15:06 Orphenadrine Citrate 60 Mg/2 Ml Amp IM 06/23/21 15:00 60 mg STAT ONE Administration Orphenadrine Citrate Confirm 06/23/21 15:05 Orphenadrine Citrate 60 Mg/2 Ml Amp Administered 06/23/21 15:06 Dose 60 mg .ROUTE .STK-MED ONE Lab/Rad Data: Laboratory Result Diagrams 06/23/21 18:03 06/23/21 18:03 Laboratory Results 06/23/21 06/23/21 06/23/21 Range/Units 18:05 18:03 18:03 WBC (4.0-10.5) K/mm3 RBC (4.1-5.6) M/mm3 Hgb (12.5-18.0) gm/dl Hct (42-50) % MCV (78-100) fl MCH (26-32) pg MCHC (32-36) g/dl RDW (11.5-14.0) % Plt Count (150-450) K/mm3 MPV (7.5-11.0) fl Gran % (36.0-66.0) % Eos # (Auto) (0-0.5) Absolute Lymphs (auto) (1.0-4.6) Absolute Monos (auto) (0.0-1.3) Lymphocytes % (24.0-44.0) % Monocytes % (0.0-12.0) % Eosinophils % (0.00-5.0) % Basophils % (0.0-0.4) % Absolute Granulocytes (1.4-6.9) Basophils # (0-0.4) Sodium 142 (137-145) mmol/L Potassium 4.3 (3.5-5.1) mmol/L Chloride 105 (98-107) mmol/L Carbon Dioxide 26 (22-30) mmol/L Anion Gap 15.3 H (5-15) MEQ/L BUN 12 (9-20) mg/dL Creatinine 0.60 L (0.66-1.25) mg/dL Estimated GFR > 60.0 ML/MIN Glucose 86 (74-106) mg/dL Lactic Acid 1.7 (0.4-2.0) Calcium 9.5 (8.4-10.2) mg/dL Total Bilirubin 0.50 (0.2-1.3) mg/dL AST 35 (17-59) U/L ALT 42 (0-50) U/L Alkaline Phosphatase 46 (38-126) U/L Troponin I < 0.012 (0.000-0.034) ng/mL Serum Total Protein 8.0 (6.3-8.2) g/dL Albumin 4.9 (3.5-5.0) g/dL Lipase 62 (23-300) U/L Urine Color (YELLOW) Urine Appearance (CLEAR) Urine pH (5-6) Ur Specific [place] (1.005-1.025) Urine Protein (Negative) Urine Ketones (NEGATIVE) Urine Blood (0-5) Mio/ul Urine Nitrite (NEGATIVE) Urine Bilirubin (NEGATIVE) Urine Urobilinogen (0-1) mg/dL Ur Leukocyte Esterase (NEGATIVE) Urine WBC (Auto) (0-5) /HPF Urine RBC (Auto) (0-2) /HPF U Epithel Cells (Auto) (FEW) /HPF Urine Bacteria (Auto) (NEGATIVE) /HPF Urine Mucus (Auto) (NEGATIVE) /HPF Urine Culture Reflexed (NO) Urine Glucose (NEGATIVE) mg/dL 06/23/21 06/23/21 Range/Units 18:03 15:03 WBC 4.4 (4.0-10.5) K/mm3 RBC 5.43 (4.1-5.6) M/mm3 Hgb 16.8 (12.5-18.0) gm/dl Hct 49.5 (42-50) % MCV 91.2 (78-100) fl MCH 30.9 (26-32) pg MCHC 33.9 (32-36) g/dl RDW 13.3 (11.5-14.0) % Plt Count 241 (150-450) K/mm3 MPV 8.5 (7.5-11.0) fl Gran % 41.2 (36.0-66.0) % Eos # (Auto) 0.36 (0-0.5) Absolute Lymphs (auto) 1.75 (1.0-4.6) Absolute Monos (auto) 0.44 (0.0-1.3) Lymphocytes % 40.2 (24.0-44.0) % Monocytes % 10.1 (0.0-12.0) % Eosinophils % 8.3 H (0.00-5.0) % Basophils % 0.2 (0.0-0.4) % Absolute Granulocytes 1.79 (1.4-6.9) Basophils # 0.01 (0-0.4) Sodium (137-145) mmol/L Potassium (3.5-5.1) mmol/L Chloride (98-107) mmol/L Carbon Dioxide (22-30) mmol/L Anion Gap (5-15) MEQ/L BUN (9-20) mg/dL Creatinine (0.66-1.25) mg/dL Estimated GFR ML/MIN Glucose (74-106) mg/dL Lactic Acid (0.4-2.0) Calcium (8.4-10.2) mg/dL Total Bilirubin (0.2-1.3) mg/dL AST (17-59) U/L ALT (0-50) U/L Alkaline Phosphatase (38-126) U/L Troponin I (0.000-0.034) ng/mL Serum Total Protein (6.3-8.2) g/dL Albumin (3.5-5.0) g/dL Lipase (23-300) U/L Urine Color YELLOW (YELLOW) Urine Appearance SLIGHTLY CLOUDY (CLEAR) Urine pH 5.0 (5-6) Ur Specific [place] 1.026 (1.005-1.025) Urine Protein NEGATIVE (Negative) Urine Ketones NEGATIVE (NEGATIVE) Urine Blood NEGATIVE (0-5) Mio/ul Urine Nitrite NEGATIVE (NEGATIVE) Urine Bilirubin NEGATIVE (NEGATIVE) Urine Urobilinogen NEGATIVE (0-1) mg/dL Ur Leukocyte Esterase NEGATIVE (NEGATIVE) Urine WBC (Auto) 3-5 (0-5) /HPF Urine RBC (Auto) NONE (0-2) /HPF U Epithel Cells (Auto) NONE (FEW) /HPF Urine Bacteria (Auto) NONE (NEGATIVE) /HPF Urine Mucus (Auto) SLIGHT (NEGATIVE) /HPF Urine Culture Reflexed NO (NO) Urine Glucose NEGATIVE (NEGATIVE) mg/dL - Progress Progress: improved, re-examined Progress Note: 06/23/21 17:36 did not have good relief with meds. will expand workup to cover other areas as well. and will have to use additional pain meds. 06/23/21 17:39 pt has heart score <3 and low wells criteria and percs out at this time. . 06/23/21 17:52 06/23/21 18:54 good relief with pain meds. 06/23/21 18:57 discussed symptoms and findings and that additional pathology cannot be excluded without furhter workup including cardio or vascular and they would prefer outpt followup rather than furhter workup in ER at this time and have the capacity to make this choice. 06/23/21 18:59 discussed risk/benefit of dospak and they wish to proceed. Counseled pt/family regarding: lab results, diagnosis, need for follow-up, rad results - Departure Departure Disposition: Home Clinical Impression: TRAP/ROM STRAIN/SPASM, Back injury Condition: Good Critical Care Time: No Referrals: ODILON TALAVERA [Primary Care Provider] - Follow up/PCP as directed Instructions: Low Back Pain (DC), Muscle Strain (DC), Sciatica (DC), Muscle Spasms (DC) Additional Instructions: follow-up your blood pressure with your Dr. use over the counter heating pad and lidocaine patches. see your dr this week for possible ortho referral/evaluation. return meantime if not improving, fever, vomiting, numbness, short of breath or any symptoms of concern. Prescriptions: Cyclobenzaprine HCl 10 mg [Cyclobenzaprine 10 MG] 10 mg PO Q8HPRN PRN #20 tablet PRN Reason: Pain Methylprednisolone Packet [Medrol Dosepack] 4 mg PO UD #30 packet
[2021-06-23] MEDS ORDERED: Norflex 60 MG/2 ML IM ONE (14:59)
[2021-06-23] MEDS ORDERED: TORAdol 30 mg Injection IM ONE (14:59)
[2021-06-23] MEDS ORDERED: Norflex 60 MG/2 ML ONE (15:05)
[2021-06-23] MEDS ORDERED: TORAdol 30 mg Injection ONE ×2 (15:05→15:07)
[2021-06-23 16:12] LABS: Appearance SLIGHTLY CLOUDY (CLEAR); Bilirubin NEGATIVE (NEGATIVE); Blood NEGATIVE Ery/ul (0-5); Glucose NEGATIVE (NEGATIVE); Ketones NEGATIVE (NEGATIVE); Leukocyte Esterase NEGATIVE (NEGATIVE); Mucus SLIGHT /HPF (NEGATIVE); Nitrite NEGATIVE (NEGATIVE); Protein,Urine Dip NEGATIVE (Negative); Specific Gravity 1.026 (1.005-1.025); Urobilinogen NEGATIVE mg/dL (0-1)
[2021-06-23] MEDS ORDERED: Zofran 4 MG/2 ML VIAL IV ONE (17:37)
[2021-06-23] MEDS ORDERED: Hydromorphone 1 mg/ml Injection IV ONE (17:37)
[2021-06-23] MEDS ORDERED: Sodium Chloride 0.9% 1000 ML 1,000 ML IV STA (17:37)
[2021-06-23] MEDS ORDERED: Zofran 4 MG/2 ML VIAL ONE (17:42)
[2021-06-23] MEDS ORDERED: Sodium Chloride 0.9% 1000 ML 1,000 ML ONE (17:42)
[2021-06-23] MEDS ORDERED: Hydromorphone 1 mg/ml Injection ONE (17:42)
[2021-06-23 18:06] LABS: Absolute Neutrophil Ct (ANC) 1.79 (1.4-6.9); Basophil (Absolute #) 0.01 (0-0.4); Eosinophil % 8.3 % (0.00-5.0); Eosinophil (Absolute #) 0.36 (0-0.5); Hematocrit 49.5 % (42-50); Hemoglobin 16.8 gm/dl (12.5-18.0); Lymphocyte (Absolute #) 1.75 (1.0-4.6); Lymphocytes % 40.2 % (24.0-44.0); Mean Cell Volume 91.2 fl (78-100); Mean Corpuscular Hemoglobin 30.9 pg (26-32); Mean Corpuscular Hgb Concent. 33.9 g/dl (32-36); Mean Platelet Volume 8.5 fl (7.5-11.0); Monocyte (Absolute #) 0.44 (0.0-1.3); Monocytes % 10.1 % (0.0-12.0); Neutrophil % 41.2 % (36.0-66.0); Platelet Count 241 K/mm3 (150-450); Red Blood Count 5.43 M/mm3 (4.1-5.6); Red Cell Distribution Width 13.3 % (11.5-14.0); White Blood Count 4.4 K/mm3 (4.0-10.5)
[2021-06-23 18:25] LABS: ALBUMIN 4.9 g/dL (3.5-5.0); ALKALINE PHOSPHATASE 46 U/L (38-126); BLOOD UREA NITROGEN 12 mg/dL (9-20); CHLORIDE 105 mmol/L (98-107); Calcium 9.5 mg/dL (8.4-10.2); Carbon Dioxide 26 mmol/L (22-30); EST GLOMERULAR FILTRATION RATE > 60.0 ML/MIN; Glucose 86 mg/dL (74-106); LIPASE 62 U/L (23-300); SGOT/AST 35 U/L (17-59); SGPT/ALT 42 U/L (0-50); SODIUM 142 mmol/L (137-145)
[2021-06-23 18:27] LABS: Potassium 4.3 mmol/L (3.5-5.1)
[2021-06-23 18:29] LABS: ANION GAP 15.3 MEQ/L (5-15)
--- NOTE | 2021-06-23 19:05 | XRAY ---
Indication: Pain between shoulder blades with breathing. Comparison: July 10, 2018. PA/lateral chest clear again with incidental right base calcified granuloma. Heart and mediastinal structures within normal limits. Bony thorax intact again with mild degenerative changes. Impression: Nonacute chest with chronic features.
[2021-06-23 19:21] VITALS: BP 123/85; PULSE 72; O2SAT 98
== END 2021-06-23 19:22 | disposition home or self-care (01) ==
LOC: ED 14:38
DX: S29.012A Strain of muscle and tendon of back wall of thorax, initial encounter (principal); X50.0XXA Overexertion from strenuous movement or load, initial encounter; M62.830 Muscle spasm of back; I10 Essential (primary) hypertension; M51.27 Other intervertebral disc displacement, lumbosacral region; G89.29 Other chronic pain; Z72.0 Tobacco use; Z79.52 Long term (current) use of systemic steroids
CPT/HCPCS: 36415; 71046; 80053; 81001; 83605; 83690; 84484; 85025; 93005; 96360; 96372; 96374; 96375; 99284; J1170; J1885; J2360; J2405

== ENCOUNTER 2021-10-26 05:21 | Emergency (ER) | payer OTHER ==
[2021-10-26] MEDS ORDERED: XYLOCAINE VISCOUS 2% 15 ML CUP ONE (05:50)
[2021-10-26] MEDS ORDERED: XYLOCAINE VISCOUS 2% 15 ML CUP PO ONE (05:54)
--- NOTE | 2021-10-26 06:04 | ERPHSYRPT ---
- History of Present Illness Time Seen by Provider: 10/26/21 05:44 Patient Subjective Stated Complaint: pt states that he has had a very painful hemmorhoid for the last few days and nothing has helped this time. pt states he is 8/10 on pain scale. pt alert and oriented x4 Triage Nursing Assessment: pt alert and oriented, gaurding bottom and unable to fully sit on bed due to pain Physician History: Patient is a 36-year-old male who presents with complaint of rectal pain. He suspects a thrombosed hemorrhoid. His pain started a few days ago after a rather hard large bowel movement. Since that time he has had rectal pain especially after a bowel movement. He does not complain of any bleeding. Timing/Duration: day(s) (4) Severity: moderate Allergies/Adverse Reactions: codeine Allergy (Mild, Verified 10/26/21 05:35) diazepam [From Valium] Allergy (Mild, Verified 10/26/21 05:35) erythromycin base [Erythromycin Base] Allergy (Mild, Verified 10/26/21 05:35) Penicillins Allergy (Mild, Verified 10/26/21 05:35) Hx Tetanus, Diphtheria Vaccination/Date Given: No Hx Influenza Vaccination/Date Given: No Hx Pneumococcal Vaccination/Date Given: No Immunizations Up to Date: No Travel Risk - International Travel Have you traveled outside of the country in past 3 weeks: No - Coronavirus Screening Are you exhibiting any of the following symptoms?: No Close contact with a COVID-19 positive Pt in past 14-21 Days: No - Vaccine Status Have you recieved a Covid-19 vaccination: No - Review of Systems Constitutional: No Fever, No Chills Eyes: No Symptoms Ears, Nose, & Throat: No Symptoms Respiratory: No Cough, No Dyspnea Cardiac: No Chest Pain, No Edema, No Syncope Abdominal/Gastrointestinal: Constipation, No Abdominal Pain, No Nausea, No Vomiting, No Diarrhea Genitourinary Symptoms: No Dysuria Musculoskeletal: No Back Pain, No Neck Pain Skin: No Rash Neurological: No Dizziness, No Focal Weakness, No Sensory Changes Psychological: No Symptoms Endocrine: No Symptoms All Other Systems: Reviewed and Negative - Past Medical History Pertinent Past Medical History: Yes Neurological History: No Pertinent History ENT History: No Pertinent History Cardiac History: Hypertension Respiratory History: Asthma Endocrine Medical History: No Pertinent History Musculoskeletal History: No Pertinent History GI Medical History: No Pertinent History History: No Pertinent History Psycho-Social History: Depression Male Reproductive Disorders: No Pertinent History Other Medical History: CHRONIC BACK PAIN,3 bulging disks. - Past Surgical History Past Surgical History: Yes Neuro Surgical History: No Pertinent History Cardiac: No Pertinent History Respiratory: No Pertinent History Gastrointestinal: Cholecystectomy, Hernia Repair Genitourinary: No Pertinent History Musculoskeletal: Orthopedic Surgery Male Surgical History: No Pertinent History Other Surgical History: tonsils, umb hernia repair, left hand ,carpal tunnel - Social History Smoking Status: Current every day smoker How long have you smoked: 3 years Exposure to second hand smoke: Yes Drug Use: marijuana Patient Lives Alone: No - Nursing Vital Signs Nursing Vital Signs: Initial Vital Signs Temperature 97.7 F 10/26/21 05:25 Respiratory Rate 18 10/26/21 05:25 O2 Sat by Pulse Oximetry 100 10/26/21 05:25 Pain Scale Pain Intensity 8 - Physical Exam General Appearance: mild distress, alert Eye Exam: PERRL/EOMI, eyes nml inspection Ears, Nose, Throat Exam: normal ENT inspection, TMs normal, pharynx normal, moist mucous membranes Neck Exam: normal inspection, non-tender, supple, full range of motion Respiratory Exam: normal breath sounds, lungs clear, No respiratory distress Cardiovascular Exam: regular rate/rhythm, normal heart sounds, normal peripheral pulses Gastrointestinal/Abdomen Exam: soft, normal bowel sounds, No tenderness, No mass Rectal Exam: other (Examination reveals a very tender area with the appearance of an anal fissure at the posterior midline) Back Exam: normal inspection, normal range of motion, No CVA tenderness, No vertebral tenderness Extremity Exam: normal inspection, normal range of motion, pelvis stable Neurologic Exam: alert, oriented x 3, cooperative, normal mood/affect, nml cerebellar function, nml station & gait, sensation nml, No motor deficits Skin Exam: normal color, warm, dry, No rash Lymphatic Exam: No adenopathy SpO2 Interpretation: normal SpO2: 100 O2 Delivery: Room Air - Course Nursing assessment & vital signs reviewed: Yes - Progress Progress: improved - Departure Departure Disposition: Home Clinical Impression: Anal fissure Condition: Stable Critical Care Time: No Referrals: ODILON TALAVERA [Primary Care Provider] - Follow up/PCP as directed Instructions: Anal Fissure (DC) Prescriptions: Cyclobenzaprine HCl 10 mg [Flexeril 10 MG] 10 mg PO TID #12 tablet Diclofenac Sodium 50 mg [Voltaren 50 mg] 50 mg PO Q8H 10 Days #30 Lidocaine HCl 2% Jelly [Xylocaine 2% JELLY] 30 ml MM Q4H PRN #30 ml PRN Reason: Pain
[2021-10-26 06:26] VITALS: BP 155/88; PULSE 104; O2SAT 96
== END 2021-10-26 06:26 | disposition home or self-care (01) ==
LOC: ED 05:21
DX: K60.2 Anal fissure, unspecified (principal); I10 Essential (primary) hypertension; Z72.0 Tobacco use; Z28.310 Unvaccinated for COVID-19
CPT/HCPCS: 99283; A9270-GY

== ENCOUNTER 2021-11-28 02:40 | Emergency (ER) | payer OTHER ==
[2021-11-28] MEDS ORDERED: XYLOCAINE VISCOUS 2% 15 ML CUP ONE (03:04)
--- NOTE | 2021-11-28 03:04 | ERPHSYRPT ---
- History of Present Illness Time Seen by Provider: 11/28/21 02:50 Physician History: Patient is a 36-year-old male with a known hemorrhoid. Patient states that he has been experiencing pain at this hemorrhoid for several weeks. Patient currently has an appointment with a general surgeon however the appointment is not scheduled until 13 December. Patient states he cannot wait that long. He states the rectal pain awoke him from sleep this morning. No recent trauma. No fever. Pain worse with bowel movement. Pain improved with rest. Patient denies abdominal pain. No diarrhea. No rash. Patient has been doing sitz bath. Patient also doing stool softeners. Patient tried Proctosol which was helpful. Patient otherwise feels well. He voices no other complaints or concerns at this time. Timing/Duration: today Severity: mild Modifying Factors: Improves With: nothing Associated Symptoms: denies symptoms Allergies/Adverse Reactions: codeine Allergy (Mild, Verified 11/28/21 02:50) diazepam [From Valium] Allergy (Mild, Verified 11/28/21 02:50) erythromycin base [Erythromycin Base] Allergy (Mild, Verified 11/28/21 02:50) Penicillins Allergy (Mild, Verified 11/28/21 02:50) Hx Tetanus, Diphtheria Vaccination/Date Given: No Hx Influenza Vaccination/Date Given: No Hx Pneumococcal Vaccination/Date Given: No Travel Risk - Vaccine Status Have you recieved a Covid-19 vaccination: No - Review of Systems Constitutional: No Symptoms, No Fever, No Chills Eyes: No Symptoms Ears, Nose, & Throat: No Symptoms Respiratory: No Symptoms, No Cough, No Dyspnea Cardiac: No Symptoms, No Chest Pain, No Edema, No Syncope Abdominal/Gastrointestinal: No Symptoms, No Abdominal Pain, No Nausea, No Vomiting, No Diarrhea Genitourinary Symptoms: No Symptoms, No Dysuria Musculoskeletal: No Symptoms, No Back Pain, No Neck Pain Skin: No Symptoms, No Rash Neurological: No Symptoms, No Dizziness, No Focal Weakness, No Sensory Changes Psychological: No Symptoms Endocrine: No Symptoms Hematologic/Lymphatic: No Symptoms Immunological/Allergic: No Symptoms All Other Systems: Reviewed and Negative - Past Medical History Pertinent Past Medical History: Yes Neurological History: No Pertinent History ENT History: No Pertinent History Cardiac History: Hypertension Respiratory History: Asthma Endocrine Medical History: No Pertinent History Musculoskeletal History: No Pertinent History GI Medical History: No Pertinent History History: No Pertinent History Psycho-Social History: Depression Male Reproductive Disorders: No Pertinent History Other Medical History: CHRONIC BACK PAIN,3 bulging disks. - Past Surgical History Past Surgical History: Yes Neuro Surgical History: No Pertinent History Cardiac: No Pertinent History Respiratory: No Pertinent History Gastrointestinal: Cholecystectomy, Hernia Repair Genitourinary: No Pertinent History Musculoskeletal: Orthopedic Surgery Male Surgical History: No Pertinent History Other Surgical History: tonsils, umb hernia repair, left hand ,carpal tunnel - Social History Smoking Status: Current every day smoker How long have you smoked: 3 years Exposure to second hand smoke: Yes Drug Use: marijuana Patient Lives Alone: No - Nursing Vital Signs Nursing Vital Signs: Initial Vital Signs Temperature 97.5 F 11/28/21 02:40 Pulse Rate 95 H 11/28/21 02:40 Respiratory Rate 16 11/28/21 02:40 Blood Pressure 151/85 11/28/21 02:40 O2 Sat by Pulse Oximetry 96 11/28/21 02:40 Pain Scale Pain Intensity 6 - Physical Exam General Appearance: no apparent distress, alert Eye Exam: PERRL/EOMI, eyes nml inspection Ears, Nose, Throat Exam: normal ENT inspection, TMs normal, pharynx normal, moist mucous membranes Neck Exam: normal inspection, non-tender, supple, full range of motion Respiratory Exam: normal breath sounds, lungs clear, airway intact, No respiratory distress Cardiovascular Exam: regular rate/rhythm, normal heart sounds, normal peripheral pulses Gastrointestinal/Abdomen Exam: soft, normal bowel sounds, No tenderness, No mass Rectal Exam: other (Tender hemorrhoid at 9:00. No thrombosed hemorrhoid observed.) Back Exam: normal inspection, normal range of motion, No CVA tenderness, No vertebral tenderness Extremity Exam: normal inspection, normal range of motion, pelvis stable Neurologic Exam: alert, oriented x 3, cooperative, normal mood/affect, nml cerebellar function, nml station & gait, sensation nml, No motor deficits Skin Exam: normal color, warm, dry, No rash Lymphatic Exam: No adenopathy SpO2 Interpretation: normal SpO2: 96 O2 Delivery: Room Air - Course Nursing assessment & vital signs reviewed: Yes Ordered Tests: Medication Summary Discontinued Medications Generic Name Dose Route Start Last Admin Trade Name Freq PRN Reason Stop Dose Admin Ketorolac Tromethamine 30 mg 11/28/21 03:06 11/28/21 03:24 Ketorolac Tromethamine 30 Mg/Ml Inj IM 11/28/21 03:07 30 mg STAT ONE Administration Ketorolac Tromethamine Confirm 11/28/21 03:22 Ketorolac Tromethamine 30 Mg/Ml Inj Administered 11/28/21 03:23 Dose 30 mg .ROUTE .STK-MED ONE Lidocaine HCl Confirm 11/28/21 03:04 Lidocaine Hcl 2% Viscous 15 Ml Udcup Administered 11/28/21 03:05 Dose 15 ml .ROUTE .STK-MED ONE Lidocaine HCl Confirm 11/28/21 03:07 Lidocaine 4% Topical Solution 50 Ml Ml Administered 11/28/21 03:08 Dose 1 ml .ROUTE .STK-MED ONE Lidocaine HCl 20 ml 11/28/21 03:05 11/28/21 03:17 Lidocaine 4% Topical Solution 50 Ml Ml TOP 11/28/21 03:06 20 ml STAT ONE Administration Lidocaine HCl Confirm 11/28/21 03:22 Lidocaine 4% Topical Solution 50 Ml Ml Administered 11/28/21 03:23 Dose 19 ml .ROUTE .STK-MED ONE - Progress Progress: improved Progress Note: Patient reassessed. Pain improved after administration of Toradol and topical lidocaine. Contact information was provided for the lunch group as patient does not want to wait till 13 December at to follow-up with his general surgeon. No indication for further work-up at this time. Will discharge home. Patient agrees to follow-up as indicated. Portions of this note were created with voice recognition technology. There may be grammatical, spelling, punctuation or sound alike errors 11/28/21 03:[address] ZAMORANO of general surgery who states Dr. Harrison will have office hours this morning. Patient may call Dr. Harrison this morning to schedule a follow-up appointment today. 11/28/21 03:51 Counseled pt/family regarding: diagnosis, need for follow-up - Departure Departure Disposition: Home Clinical Impression: Hemorrhoid Condition: Stable Critical Care Time: No Referrals: ODILON TALAVERA [Primary Care Provider] - Follow up/PCP as directed FOREIGN HARRISON [ACTIVE STAFF] - Follow up/PCP as directed Instructions: Hemorrhoids (DC) Additional Instructions: Discharge/Care Plan BC TOM was seen on 11/28/21 in the Emergency Room. The patient was counseled regarding Diagnosis,Lab results, Imaging studies, need for follow up and when to return to the Emergency Room. Prescriptions given: Discharge Note I have spoken with the patient and/or caregivers. I have explained the patient's condition, diagnosis and treatment plan based on the information available to me at this time. I have answered the patient's and/or caregiver's questions and addressed any concerns. The patient and/or caregivers have as good understanding of the patient's diagnosis, condition and treatment plan as can be expected at this point. The vital signs have been stable. The patient's condition is stable and appropriate for discharge from the emergency department. The patient will pursue further outpatient evaluation with the primary care physician or other designated or consulting physician as outlined in the discharge instructions. The patient and/or caregivers are agreeable to this plan of care and follow-up instructions have been explained in detail. The patient and/or caregivers have received these instruction. The patient/and or caregivers are aware that any significant change in condition or worsening of symptoms should prompt an immediate return to this or the closest emergency department or call 911.
[2021-11-28] MEDS ORDERED: XYLOCAINE 4% TOPICAL SOLUTION 50 ML TOP ONE (03:05)
[2021-11-28] MEDS ORDERED: TORAdol 30 mg Injection IM ONE (03:06)
[2021-11-28] MEDS ORDERED: XYLOCAINE 4% TOPICAL SOLUTION 50 ML ONE ×2 (03:07→03:22)
[2021-11-28] MEDS ORDERED: TORAdol 30 mg Injection ONE (03:22)
[2021-11-28 03:49] VITALS: BP 132/78; PULSE 102
[2021-11-28 03:52] VITALS: O2SAT 96
== END 2021-11-28 03:49 | disposition home or self-care (01) ==
LOC: ED 02:40
DX: K64.9 Unspecified hemorrhoids (principal); I10 Essential (primary) hypertension; Z72.0 Tobacco use; Z28.310 Unvaccinated for COVID-19
CPT/HCPCS: 96372; 99282; J1885; A9270-GY

== ENCOUNTER 2021-11-28 20:20 | Emergency (ER) | payer OTHER ==
[2021-11-28] MEDS ORDERED: Sodium Chloride 0.9% 1000 ML 1,000 ML IV STA (20:34)
[2021-11-28] MEDS ORDERED: Zofran 4 MG/2 ML VIAL IV ONE ×2 (20:34→22:31)
[2021-11-28] MEDS ORDERED: TORAdol 30 mg Injection IV ONE (20:36)
[2021-11-28] MEDS ORDERED: TORAdol 30 mg Injection ONE (20:47)
[2021-11-28] MEDS ORDERED: Sodium Chloride 0.9% 1000 ML 1,000 ML ONE (20:47)
--- NOTE | 2021-11-28 20:48 | ERPHSYRPT ---
- History of Present Illness Time Seen by Provider: 11/28/21 20:44 Source: patient Exam Limitations: no limitations Patient Subjective Stated Complaint: rectal pain x1 month, off and on Triage Nursing Assessment: pt c/o rectal pain x1 month off and on. Pt was seen in ER last night but returned tonight due to pain. Pt was to see a surgeon but that got messed up so he returned. Physician History: Patient 36-year-old male presents to ED with complaints of rectal pain. Rectal pain has been intermittent for approximately 1 month. Patient was diagnosed with a hemorrhoid and was scheduled to see a surgeon. However patient's appointment to see his surgeon is not till December 13. Patient presented to our ED last night with the same symptoms. Patient was unable to sleep due to progressive pain. Patient was scheduled to see one of our surgeons however was unable to see our surgeon as planned. Patient's pain is progressive. Patient is here today for ongoing pain. Pain described as an ache that is localized. Pain localized to the left lateral 9:00 area of his rectum. No trauma. No fever. Patient denies history of foreign body. Symptoms are progressive. Symptoms are moderate in intensity. Palpation reproduces symptoms. Bowel movements reproduce symptoms as well. Patient is otherwise healthy. He voices no other complaints or concerns at this time. Portions of this note were created with voice recognition technology. There may be grammatical, spelling, punctuation or sound alike errors Timing/Duration: week(s) (1 month), intermittent Severity: moderate Modifying Factors: Improves With: other (Palpation reproduces symptoms. Painful bowel movements.) Associated Symptoms: denies symptoms (No associated symptoms) Allergies/Adverse Reactions: codeine Allergy (Mild, Verified 11/28/21 20:40) diazepam [From Valium] Allergy (Mild, Verified 11/28/21 20:40) erythromycin base [Erythromycin Base] Allergy (Mild, Verified 11/28/21 20:40) Penicillins Allergy (Mild, Verified 11/28/21 20:40) Hx Tetanus, Diphtheria Vaccination/Date Given: Yes Hx Influenza Vaccination/Date Given: No Hx Pneumococcal Vaccination/Date Given: No Immunizations Up to Date: Yes Travel Risk - International Travel Have you traveled outside of the country in past 3 weeks: No - Coronavirus Screening Are you exhibiting any of the following symptoms?: No Close contact with a COVID-19 positive Pt in past 14-21 Days: No - Vaccine Status Have you recieved a Covid-19 vaccination: No - Review of Systems Constitutional: No Symptoms, No Fever, No Chills Eyes: No Symptoms Ears, Nose, & Throat: No Symptoms Respiratory: No Symptoms, No Cough, No Dyspnea Cardiac: No Symptoms, No Chest Pain, No Edema, No Syncope Abdominal/Gastrointestinal: No Symptoms, No Abdominal Pain, No Nausea, No Vomiting, No Diarrhea Genitourinary Symptoms: No Symptoms, No Dysuria Musculoskeletal: No Symptoms, No Back Pain, No Neck Pain Skin: No Symptoms, No Rash Neurological: No Symptoms, No Dizziness, No Focal Weakness, No Sensory Changes Psychological: No Symptoms Endocrine: No Symptoms Hematologic/Lymphatic: No Symptoms Immunological/Allergic: No Symptoms All Other Systems: Reviewed and Negative - Past Medical History Pertinent Past Medical History: Yes Neurological History: No Pertinent History ENT History: No Pertinent History Cardiac History: Hypertension Respiratory History: Asthma Endocrine Medical History: No Pertinent History Musculoskeletal History: No Pertinent History GI Medical History: No Pertinent History History: No Pertinent History Psycho-Social History: Depression Male Reproductive Disorders: No Pertinent History Other Medical History: CHRONIC BACK PAIN,3 bulging disks. - Past Surgical History Past Surgical History: Yes Neuro Surgical History: No Pertinent History Cardiac: No Pertinent History Respiratory: No Pertinent History Gastrointestinal: Cholecystectomy, Hernia Repair Genitourinary: No Pertinent History Musculoskeletal: Orthopedic Surgery Male Surgical History: No Pertinent History Other Surgical History: tonsils, umb hernia repair, left hand ,carpal tunnel - Social History Smoking Status: Current every day smoker How long have you smoked: 3 years Exposure to second hand smoke: Yes Drug Use: marijuana Patient Lives Alone: No - Nursing Vital Signs Nursing Vital Signs: Initial Vital Signs Temperature 97.9 F 11/28/21 20:34 Pulse Rate 111 H 11/28/21 20:34 Respiratory Rate 18 11/28/21 20:34 Blood Pressure 122/90 11/28/21 20:34 O2 Sat by Pulse Oximetry 98 11/28/21 20:34 Pain Scale Pain Intensity 2 - Physical Exam General Appearance: no apparent distress, alert Eye Exam: PERRL/EOMI, eyes nml inspection Ears, Nose, Throat Exam: normal ENT inspection, TMs normal, pharynx normal, [address] st mucous membranes Neck Exam: normal inspection, non-tender, supple, full range of motion Respiratory Exam: normal breath sounds, lungs clear, airway intact, No respiratory distress Cardiovascular Exam: regular rate/rhythm, normal heart sounds, normal peripheral pulses Gastrointestinal/Abdomen Exam: soft, normal bowel sounds, No tenderness, No mass Back Exam: normal inspection, normal range of motion, No CVA tenderness, No vertebral tenderness Extremity Exam: normal inspection, normal range of motion, pelvis stable Neurologic Exam: alert, oriented x 3, cooperative, normal mood/affect, nml cerebellar function, nml station & gait, sensation nml, No motor deficits Skin Exam: normal color, warm, dry, No rash Lymphatic Exam: No adenopathy SpO2 Interpretation: normal SpO2: 98 O2 Delivery: Room Air - Course Nursing assessment & vital signs reviewed: Yes - CT Exams Abdomen/Pelvis CT Interpretation: Tele-radiologist Report (Continued negative CT abdomen pelvis compared to 02/06/2016) Ordered Tests: Active Orders 24 hr Category Date Time Status IV Insertion STAT Care 11/28/21 20:34 Completed ABDOMEN AND PELVIS W CONTRAST [CT] Stat Exams 11/28/21 20:34 Taken CBC W DIFF Stat Lab 11/28/21 21:11 Completed CMP Stat Lab 11/28/21 21:11 Completed UA W/RFX CULTURE Stat Lab 11/28/21 21:49 Completed Medication Summary Discontinued Medications Generic Name Dose Route Start Last Admin Trade Name Kelly PRN Reason Stop Dose Admin Sodium Chloride 1,000 mls @ 999 mls/hr 11/28/21 20:34 11/28/21 21:50 Sodium Chloride 0.9% 1000 Ml IV 11/28/21 21:34 Infused .Q1H1M STA Infusion Sodium Chloride Confirm 11/28/21 20:47 Sodium Chloride 0.9% 1000 Ml Administered 11/28/21 20:48 Dose 1,000 mls @ ud .ROUTE .STK-MED ONE Ketorolac Tromethamine 30 mg 11/28/21 20:36 11/28/21 20:49 Ketorolac Tromethamine 30 Mg/Ml Inj IV 11/28/21 20:37 30 mg STAT ONE Administration Ketorolac Tromethamine Confirm 11/28/21 20:47 Ketorolac Tromethamine 30 Mg/Ml Inj Administered 11/28/21 20:48 Dose 30 mg .ROUTE .STK-MED ONE Morphine Sulfate 2 mg 11/28/21 22:31 11/28/21 22:36 Morphine Sulfate 2 Mg/Ml Inj IV 11/28/21 22:32 2 mg STAT ONE Administration Morphine Sulfate Confirm 11/28/21 22:35 Morphine Sulfate 2 Mg/Ml Inj Administered 11/28/21 22:36 Dose 2 mg .ROUTE .STK-MED ONE Ondansetron HCl 4 mg 11/28/21 20:34 11/28/21 20:47 Ondansetron Hcl 4 Mg/2 Ml Vial IV 11/28/21 20:35 Not Given STAT ONE Ondansetron HCl 4 mg 11/28/21 22:31 11/28/21 22:36 Ondansetron Hcl 4 Mg/2 Ml Vial IV 11/28/21 22:32 4 mg STAT ONE Administration Ondansetron HCl Confirm 11/28/21 22:35 Ondansetron Hcl 4 Mg/2 Ml Vial Administered 11/28/21 22:36 Dose 4 mg .ROUTE .STK-MED ONE Lab/Rad Data: Laboratory Result Diagrams 11/28/21 21:11 11/28/21 21:11 Laboratory Results 11/28/21 11/28/21 11/28/21 Range/Units 21:49 21:11 21:11 WBC 8.1 (4.0-10.5) x10^3/uL RBC 5.03 (4.1-5.6) x10^6/uL Hgb 15.6 (12.5-18.0) g/dL Hct 45.1 (42-50) % MCV 89.7 (78-100) fL MCH 31.0 (26-32) pg MCHC 34.6 (32-36) g/dL RDW 12.0 (11.5-14.0) % Plt Count 323 (150-450) x10^3/uL MPV 8.4 (7.5-11.0) fL Gran % 54.8 (36.0-66.0) % Immature Gran % (Auto) 0.4 (0.00-0.4) % Nucleat RBC Rel Count 0.0 (0.00-0.1) % Eos # (Auto) 0.44 (0-0.5) x10^3/uL Immature Gran # (Auto) 0.03 (0.00-0.03) x10^3u/L Absolute Lymphs (auto) 2.44 (1.0-4.6) x10^3/uL Absolute Monos (auto) 0.67 (0.0-1.3) x10^3/uL Absolute Nucleated RBC 0.00 (0.00-0.01) x10^3u/L Lymphocytes % 30.2 (24.0-44.0) % Monocytes % 8.3 (0.0-12.0) % Eosinophils % 5.4 H (0.00-5.0) % Basophils % 0.9 (0.0-0.4) % Absolute Granulocytes 4.43 (1.4-6.9) x10^3/uL Basophils # 0.07 (0-0.4) x10^3/uL Sodium 137 (137-145) mmol/L Potassium 3.6 (3.5-5.1) mmol/L Chloride 104 (98-107) mmol/L Carbon Dioxide 23 (22-30) mmol/L Anion Gap 13.7 (5-15) MEQ/L BUN 11 (9-20) mg/dL Creatinine 0.66 (0.66-1.25) mg/dL Estimated GFR > 60.0 ML/MIN Glucose 83 (74-106) mg/dL Calcium 8.3 L (8.4-10.2) mg/dL Total Bilirubin 0.70 (0.2-1.3) mg/dL AST 29 (17-59) U/L ALT 27 (0-50) U/L Alkaline Phosphatase 48 (38-126) U/L Serum Total Protein 7.2 (6.3-8.2) g/dL Albumin 4.3 (3.5-5.0) g/dL Urinalys Dipstick Clnc MAIN LAB Urine Color YELLOW (YELLOW) Urine Appearance CLEAR (CLEAR) Urine pH 7.0 (5-6) Ur Specific [place] 1.015 (1.005-1.025) POC Urine Protein Conf NEGATIVE (Negative) Urine Ketones NEGATIVE (NEGATIVE) Urine Nitrite NEGATIVE (NEGATIVE) Urine Bilirubin NEGATIVE (NEGATIVE) Urine Urobilinogen 0.2 (0-1) mg/dL Urine Leukocytes NEGATIVE (NEGATIVE) Urine WBC (Auto) NONE (0-5) /HPF Urine RBC (Auto) NONE (0-2) /HPF U Epithel Cells (Auto) NONE (FEW) /HPF Urine Bacteria (Auto) NONE (NEGATIVE) /HPF Urine RBC TRACE-INTACT (0-5) Mio/ul Ur Culture Indicated? NO Urine Glucose NEGATIVE (NEGATIVE) mg/dL - Progress Progress: improved Progress Note: Patient reassessed. He is resting comfortably. Patient received Toradol morphine for pain control. Case discussed with Dr. Harrison who states patient may follow up with either Dr. Mounika Garza or Dr. Carrera in office tomorrow. Patient may call [phone] for an appointment time. Patient advised to tell materials scheduler that both Dr. Gilberto Harrison and Yuli request follow up tomorrow. 11/28/21 23:[address] Jose Will see patient in: office Counseled pt/family regarding: lab results, diagnosis, need for follow-up, rad results - Departure Departure Disposition: Home Clinical Impression: Rectal pain, Hemorrhoid Condition: Stable Critical Care Time: No Referrals: ODILON TALAVERA [Primary Care Provider] - Follow up/PCP as directed Additional Instructions: Please call [phone] tomorrow morning to schedule a follow up appointment for tomorrow. Please advise the materials scheduler that per Dr. Roldan and Dr. Jet Harrison, you are to scheduled with either Dr. Cullen Harrison or Dr. Carrera. Discharge/Care Plan BC TOM was seen on 11/28/21 in the Emergency Room. The patient was counseled regarding Diagnosis,Lab results, Imaging studies, need for follow up and when to return to the Emergency Room. Prescriptions given: Discharge Note I have spoken with the patient and/or caregivers. I have explained the patient's condition, diagnosis and treatment plan based on the information available to me at this time. I have answered the patient's and/or caregiver's questions and addressed any concerns. The patient and/or caregivers have as good understanding of the patient's diagnosis, condition and treatment plan as can be expected at this point. The vital signs have been stable. The patient's condition is stable and appropriate for discharge from the emergency department. The patient will pursue further outpatient evaluation with the primary care physician or other designated or consulting physician as outlined in the discharge instructions. The patient and/or caregivers are agreeable to this plan of care and follow-up instructions have been explained in detail. The patient and/or caregivers have received these instruction. The patient/and or caregivers are aware that any significant change in condition or worsening of symptoms should prompt an immediate return to this or the closest emergency department or call 911.
[2021-11-28 21:15] LABS: Absolute Neutrophil Ct (ANC) 4.43 x10^3/uL (1.4-6.9); Basophil (Absolute #) 0.07 x10^3/uL (0-0.4); Eosinophil % 5.4 % (0.00-5.0); Eosinophil (Absolute #) 0.44 x10^3/uL (0-0.5); Hematocrit 45.1 % (42-50); Hemoglobin 15.6 g/dL (12.5-18.0); Lymphocyte (Absolute #) 2.44 x10^3/uL (1.0-4.6); Lymphocytes % 30.2 % (24.0-44.0); Mean Cell Volume 89.7 fL (78-100); Mean Corpuscular Hgb Concent. 34.6 g/dL (32-36); Mean Platelet Volume 8.4 fL (7.5-11.0); Monocyte (Absolute #) 0.67 x10^3/uL (0.0-1.3); Monocytes % 8.3 % (0.0-12.0); Neutrophil % 54.8 % (36.0-66.0); Platelet Count 323 x10^3/uL (150-450); Red Blood Count 5.03 x10^6/uL (4.1-5.6); White Blood Count 8.1 x10^3/uL (4.0-10.5)
[2021-11-28 21:23] LABS: ALBUMIN 4.3 g/dL (3.5-5.0); ALKALINE PHOSPHATASE 48 U/L (38-126); ANION GAP 13.7 MEQ/L (5-15); BLOOD UREA NITROGEN 11 mg/dL (9-20); CHLORIDE 104 mmol/L (98-107); Calcium 8.3 mg/dL (8.4-10.2); Carbon Dioxide 23 mmol/L (22-30); Creatinine 1 0.66 mg/dL (0.66-1.25); EST GLOMERULAR FILTRATION RATE > 60.0 ML/MIN; Glucose 83 mg/dL (74-106); Potassium 3.6 mmol/L (3.5-5.1); SGOT/AST 29 U/L (17-59); SGPT/ALT 27 U/L (0-50); SODIUM 137 mmol/L (137-145); Total Protein 7.2 g/dL (6.3-8.2)
[2021-11-28 22:09] LABS: Appearance CLEAR (CLEAR); Bilirubin NEGATIVE (NEGATIVE); Glucose NEGATIVE (NEGATIVE); Ketones NEGATIVE (NEGATIVE); Specific Gravity 1.015 (1.005-1.025)
[2021-11-28 22:10] LABS: Dipstick done @ ? MAIN LAB; Nitrite NEGATIVE (NEGATIVE); Protein,Urine Dip NEGATIVE (Negative); RBC TRACE-INTACT Ery/ul (0-5); Urobilinogen 0.2 mg/dL (0-1)
[2021-11-28 22:11] LABS: Urine Cultured Indicated? NO
[2021-11-28] MEDS ORDERED: MORPHINE SULFATE 2 MG INJ IV ONE (22:31)
[2021-11-28] MEDS ORDERED: MORPHINE SULFATE 2 MG INJ ONE (22:35)
[2021-11-28] MEDS ORDERED: Zofran 4 MG/2 ML VIAL ONE (22:35)
[2021-11-28 23:16] VITALS: BP 129/76; PULSE 85
[2021-11-28 23:26] VITALS: O2SAT 98
--- NOTE | 2021-11-29 09:13 | XRAY ---
Indication: Rectal pain and bleeding. Perirectal abscess. Hemorrhoids. Multiple contiguous axial images obtained through the abdomen and pelvis using 100 cc Isovue 370 contrast. Comparison: February 06, 2016 Lung bases remain clear. Heart not enlarged. Noncontrasted stomach and bowel loops appear nonobstructed. Normal air-filled appendix. Again cholecystectomy. No free fluid/air. Spleen remains enlarged today measuring 13.4 cm. Rectum and perineum unremarkable. No pathologic pelvic or inguinal lymphadenopathy. Remaining liver, pancreas, spleen, adrenal glands, kidneys, ureters, bladder, and aorta are unremarkable. No pathologic retroperitoneal lymphadenopathy. Osseous structures intact with minimal degenerative changes of the visualized thoracic spine. No ventral or inguinal hernias. Impression: 1. Again splenomegaly. 2. Remaining CT abdomen/pelvis with contrast exam is again negative.
== END 2021-11-28 23:40 | disposition home or self-care (01) ==
LOC: ED 20:20
DX: K64.9 Unspecified hemorrhoids (principal); K62.89 Other specified diseases of anus and rectum; I10 Essential (primary) hypertension; Z72.0 Tobacco use; Z28.310 Unvaccinated for COVID-19
CPT/HCPCS: 36000; 36415; 74177; 80053; 81015; 85025; 96374; 96375; 96376; 99284; J1885; J2270; J2405

== ENCOUNTER 2022-07-12 17:05 | Emergency (ER) | payer OTHER ==
[2022-07-12 17:20] VITALS: BP 131/80; PULSE 100; O2SAT 98
--- NOTE | 2022-07-12 17:40 | ERPHSYRPT ---
- History of Present Illness Time Seen by Provider: 07/12/22 17:36 Source: patient Exam Limitations: no limitations Patient Subjective Stated Complaint: pt here for pain to throat for a couple days now,with a fever Triage Nursing Assessment: pt alert, resp easy, skin w/d/p.face mask in place, Physician History: Patient is 37-year-old male started having sore throat generalized body ache low-grade fever 2 days ago which got worse yesterday so she came to the emergency room today. Denies any fever chills nausea vomiting. Denies any previous history. Timing/Duration: day(s) (2-3 days) Cough Quality/Degree: no cough Possible Cause: no prior episodes Associated Symptoms: sore throat, No fever, No chills, No chest pain/soreness, No cough, No dizziness, No earache, No facial pain, No headache, No lightheadedness, No muscle aches Allergies/Adverse Reactions: codeine Allergy (Mild, Verified 07/12/22 17:14) diazepam [From Valium] Allergy (Mild, Verified 07/12/22 17:14) erythromycin base [Erythromycin Base] Allergy (Mild, Verified 07/12/22 17:14) Penicillins Allergy (Mild, Verified 07/12/22 17:14) Hx Tetanus, Diphtheria Vaccination/Date Given: Yes Hx Influenza Vaccination/Date Given: No Hx Pneumococcal Vaccination/Date Given: No Immunizations Up to Date: Yes Travel Risk - International Travel Have you traveled outside of the country in past 3 weeks: No - Coronavirus Screening Are you exhibiting any of the following symptoms?: No - Vaccine Status Have you recieved a Covid-19 vaccination: No - Review of Systems Constitutional: No Symptoms Eyes: No Symptoms Ears, Nose, & Throat: Throat Pain Respiratory: No Symptoms Cardiac: No Symptoms Abdominal/Gastrointestinal: No Symptoms Genitourinary Symptoms: No Symptoms Musculoskeletal: No Symptoms - Past Medical History Pertinent Past Medical History: Yes Neurological History: No Pertinent History ENT History: No Pertinent History Cardiac History: Hypertension Respiratory History: Asthma Endocrine Medical History: No Pertinent History Musculoskeletal History: No Pertinent History GI Medical History: No Pertinent History History: No Pertinent History Psycho-Social History: Depression Male Reproductive Disorders: No Pertinent History Other Medical History: CHRONIC BACK PAIN,3 bulging disks. - Past Surgical History Past Surgical History: Yes Neuro Surgical History: No Pertinent History Cardiac: No Pertinent History Respiratory: No Pertinent History Gastrointestinal: Cholecystectomy, Hernia Repair Genitourinary: No Pertinent History Musculoskeletal: Orthopedic Surgery Male Surgical History: No Pertinent History Other Surgical History: tonsils, umb hernia repair, left hand ,carpal tunnel - Social History Smoking Status: Current every day smoker How long have you smoked: 3 years Exposure to second hand smoke: Yes Drug Use: marijuana Patient Lives Alone: No - Nursing Vital Signs Nursing Vital Signs: Initial Vital Signs Temperature 97.2 F 07/12/22 17:19 Pulse Rate 100 H 07/12/22 17:19 Respiratory Rate 16 07/12/22 17:19 Blood Pressure 131/80 07/12/22 17:19 O2 Sat by Pulse Oximetry 98 07/12/22 17:19 Pain Scale Pain Intensity 7 - Physical Exam General Appearance: no apparent distress Eye Exam: PERRL/EOMI Ears, Nose, Throat Exam: normal ENT inspection, pharyngeal erythema Neck Exam: normal inspection Respiratory Exam: normal breath sounds Cardiovascular Exam: regular rate/rhythm Gastrointestinal/Abdomen Exam: soft Back Exam: normal inspection Extremity Exam: normal inspection Neurologic Exam: alert, oriented x 3 Skin Exam: normal color SpO2 Interpretation: normal SpO2: 98 O2 Delivery: Room Air - Course Nursing assessment & vital signs reviewed: Yes Lab/Rad Data: Laboratory Results 07/12/22 Range/Units 17:30 Group A Strep Antibody NOT DETECTED (NEGATIVE) - Progress Progress: improved Counseled pt/family regarding: lab results, diagnosis Medical Desision Making - Discussion of managment Agreed on:: Treatment plan, need for follow-up - Diagnostic Testing Diagnostic test were ordered, analyzed, and reviewed by me: Yes - Departure Departure Disposition: Home Clinical Impression: Sore throat (viral) Condition: Stable Critical Care Time: No Referrals: ODILON TALAVERA [Primary Care Provider] - Follow up/PCP as directed Instructions: Sore Throat, Adult (DC), Viral Pharyngitis (DC) Additional Instructions: Discharge/Care Plan NEGROCB DANIELLE was seen on 07/12/22 in the Emergency Room. The patient was counseled regarding Diagnosis,Lab results, Imaging studies, need for follow up and when to return to the Emergency Room. Prescriptions given: Discharge Note I have spoken with the patient and/or caregivers. I have explained the patient's condition, diagnosis and treatment plan based on the information available to me at this time. I have answered the patient's and/or caregiver's questions and addressed any concerns. The patient and/or caregivers have as good understanding of the patient's diagnosis, condition and treatment plan as can be expected at this point. The vital signs have been stable. The patient's condition is stable and appropriate for discharge from the emergency department. The patient will pursue further outpatient evaluation with the primary care physician or other designated or consulting physician as outlined in the discharge instructions. The patient and/or caregivers are agreeable to this plan of care and follow-up instructions have been explained in detail. The patient and/or caregivers have received these instruction. The patient/and or caregivers are aware that any significant change in condition or worsening of symptoms should prompt an immediate return to this or the closest emergency department or call 911. BC TOM was seen on 07/12/22 n the Emergency Room. At that time you were treated for an emergent condition, during your visit Laboratory, Radiology and/or other procedures may have been ordered. It is very important that you follow-up with your Primary Care Physician ODILON TALAVERA within the next 24-48 hours to review your Emergency Room visit and the final results of testing that was ordered. Some test results such as Urine Cultures, Blood Cultures, and other cultures if ordered will not be finalized for 24-48 hours. If you do not have a Primary Care Provider please call the medical records department at [phone] ext [phone] to obtain a copy of your results or you may sign into our patient portal to obtain these results by visiting us @ [email or web address] and completing the following steps: 1. Click on the Patient Portal link 2. Click the Patient Self Enrollment Link to complete the enrollment form and entering your 3. Once the enrollment form is completed you will receive an email with a temporary ID and password at the email address you provided. 4. Next choose a user name and password. Your user name must be at least 4 characters long and your password must be at least 4 characters long. 5. Choose a security question from the list and provide your answer to the question. If you already have signed into the Health Portal you may access your Health Care Information 15/12 by the following steps: 1. Login to our website @ [email or web address] 2. Enter your original user name and password. FAQS The [facility] Health Portal is an online tool that contains your Lab Results, Radiology Reports, Visit History, Discharge Instructions and Health Summary Lab and Radiology Results will not be available for 72 hours on the portal. The Portal is a secure site, passwords are encryted and URLs are re-written so they cannot be copied and pasted. You and authorized family members are the only ones who can access your Portal. Also there is a timeout feature that protects your information if you leave the Portal page open. If you have technical difficulty please use the Contact Us link on the page this will allow you to submit any questions you have regarding the Portal or you may contact the Medical Record Department at [phone] ext [phone]. Prescriptions: Guaifenesin/Dextromethorphan [Mucinex Dm ER 1,200-60 mg Tab] 1 each PO BID #10 tablet
== END 2022-07-12 18:19 | disposition home or self-care (01) ==
LOC: ED 17:05
DX: J02.9 Acute pharyngitis, unspecified (principal); M79.10 Myalgia, unspecified site; R50.9 Fever, unspecified; I10 Essential (primary) hypertension; Z28.310 Unvaccinated for COVID-19; Z72.0 Tobacco use
CPT/HCPCS: 87651; 99282

== ENCOUNTER 2022-08-02 23:05 | Emergency (ER) | payer OTHER ==
--- NOTE | 2022-08-02 23:36 | ERPHSYRPT ---
- History of Present Illness Time Seen by Provider: 08/02/22 23:20 Source: patient Exam Limitations: no limitations Patient Subjective Stated Complaint: abscess to the back of my leg x1 week Triage Nursing Assessment: Pt ambulated into ER without difficulty. Pt alert and oriented x4, pleasant and cooperative. Pt c/o abscess to the back of his right leg x1 week. Pt has a reddened, crusty area to the back of his right thigh, 1.5 cm L x 1.5cm W, looks to of been an infected hair, area is flat at this time. Pt is currently on Keflex 500 mg po tid for his teeth. Physician History: This is a 37-year-old white male patient who has been on Keflex antibiotics for approximately 1 week and has noticed right posterior lateral thigh area that is reddened and he is concerned there is an abscess present. He also thought maybe there was a insect bite to the area. Since has been on the Keflex the area on his thigh has not changed. He needs to be on the Keflex because of a dental procedure that he is to have next week. He has not had any fevers. There is been no drainage from the site. He has been using antibiotic ointment and Bactine to the area of the right thigh without much change. Timing/Duration: week(s) (1) Severity: mild Possible Causes: no cause identified Associated Symptoms: denies symptoms Allergies/Adverse Reactions: codeine Allergy (Mild, Verified 08/02/22 23:19) diazepam [From Valium] Allergy (Mild, Verified 08/02/22 23:19) erythromycin base [Erythromycin Base] Allergy (Mild, Verified 08/02/22 23:19) Penicillins Allergy (Mild, Verified 08/02/22 23:19) Home Medications: Cephalexin Mh 500 mg [Keflex 500 mg] 500 mg PO TID 08/02/22 [History] Hx Tetanus, Diphtheria Vaccination/Date Given: Yes Hx Influenza Vaccination/Date Given: No Hx Pneumococcal Vaccination/Date Given: No Travel Risk - International Travel Have you traveled outside of the country in past 3 weeks: No - Coronavirus Screening Are you exhibiting any of the following symptoms?: No Close contact with a COVID-19 positive Pt in past 14-21 Days: No - Vaccine Status Have you recieved a Covid-19 vaccination: No - Review of Systems Constitutional: No Symptoms Eyes: No Symptoms Ears, Nose, & Throat: No Symptoms Respiratory: No Symptoms Cardiac: No Symptoms Abdominal/Gastrointestinal: No Symptoms Genitourinary Symptoms: No Symptoms Musculoskeletal: No Symptoms Skin: Other (Localized redness right posterior lateral thigh) Neurological: No Symptoms Psychological: No Symptoms Endocrine: No Symptoms Hematologic/Lymphatic: No Symptoms Immunological/Allergic: No Symptoms All Other Systems: Reviewed and Negative - Past Medical History Pertinent Past Medical History: Yes Neurological History: No Pertinent History ENT History: No Pertinent History Cardiac History: Hypertension Respiratory History: Asthma Endocrine Medical History: No Pertinent History Musculoskeletal History: No Pertinent History GI Medical History: Gallbladder Disease History: No Pertinent History Psycho-Social History: Depression Male Reproductive Disorders: No Pertinent History Other Medical History: CHRONIC BACK PAIN,3 bulging disks. - Past Surgical History Past Surgical History: Yes Neuro Surgical History: No Pertinent History Cardiac: No Pertinent History Respiratory: No Pertinent History Gastrointestinal: Cholecystectomy, Hernia Repair Genitourinary: No Pertinent History Musculoskeletal: Orthopedic Surgery Male Surgical History: No Pertinent History Other Surgical History: tonsils, umb hernia repair, left hand ,carpal tunnel - Social History Smoking Status: Current every day smoker How long have you smoked: 4 yrs Exposure to second hand smoke: Yes Drug Use: marijuana Patient Lives Alone: No - Nursing Vital Signs Nursing Vital Signs: Initial Vital Signs Temperature 98.3 F 08/02/22 23:10 Pulse Rate 105 H 08/02/22 23:10 Respiratory Rate 18 08/02/22 23:10 Blood Pressure 130/79 08/02/22 23:10 O2 Sat by Pulse Oximetry 97 08/02/22 23:10 Pain Scale Pain Intensity 4 - Physical Exam General Appearance: no apparent distress, alert Eye Exam: PERRL/EOMI, eyes nml inspection Ears, Nose, Throat Exam: normal ENT inspection, moist mucous membranes Neck Exam: normal inspection, non-tender, supple, full range of motion Respiratory Exam: No chest tenderness, No respiratory distress, No airway intact Cardiovascular Exam: regular rate/rhythm, normal heart sounds, normal peripheral pulses Gastrointestinal/Abdomen Exam: No tenderness Rectal Exam: not done Back Exam: normal inspection, normal range of motion, No CVA tenderness Extremity Exam: normal range of motion, pelvis stable, inflammation (Localized redness and inflammation right posterior lateral thigh. No abscess. No drainage to this area) Neurologic Exam: alert, oriented x 3, cooperative, campus manager II-XII nml as tested, normal mood/affect, nml cerebellar function, nml station & gait, sensation nml Skin Exam: other (See above extremity exam section) Lymphatic Exam: No adenopathy SpO2 Interpretation: normal SpO2: 97 O2 Delivery: Room Air - Course Nursing assessment & vital signs reviewed: Yes - Progress Progress: unchanged Progress Note: 08/02/22 23:34 This patient's medical issue is 1 of low complexity. The complexity level and no work-up necessary was based on the patient's past medical history, medication review list, drug allergy list, history of present illness and physical findings on x-ray. No work-up is necessary. Despite Keflex oral antibiotics this right posterior lateral localized area of cellulitis has not significantly improved. We will give him Bactrim DS pill here in the emergency department. For discharge instructions we will have him stop using topical medications of any kind to this site on his leg. He will use the Bactrim DS 1 orally twice a day for 5 days. He will scrub the site twice a day with hot soapy water and dry then cover with a nonstick bandage. He can follow-up with his primary care provider for further evaluation management. He should continue his Keflex antibiotic Counseled pt/family regarding: diagnosis, need for follow-up Medical Desision Making - Discussion of managment Agreed on:: Treatment plan, need for follow-up - Risk of complications The pt has a mod risk of morbidity or mortality based on: Need for prescription drug management - Departure Departure Disposition: Home Clinical Impression: Cellulitis of right thigh Condition: Stable Critical Care Time: No Referrals: ODILON TALAVERA [Primary Care Provider] - Follow up/PCP as directed Additional Instructions: Keep the right leg area of cellulitis clean daily with soap and water 1-2 times a day. Scrub the site, rinse, then dry and place a nonstick bandage to the site. Take your antibiotics as prescribed. Follow-up with your primary care provider for further evaluation management. Continue your Keflex antibiotics as well. Since you are on 2 antibiotics you might want to increase yogurt in your diet or add a probiotic. Prescriptions: Smz/Tmp Ds Tablet [Bactrim Ds Tablet] 1 udtab PO BID #10 tablet
[2022-08-02] MEDS ORDERED: BACTRIM DS TABLET PO ONE ×2 (23:39→23:43)
[2022-08-02 23:55] VITALS: BP 119/90; PULSE 90; O2SAT 98
== END 2022-08-02 23:55 | disposition home or self-care (01) ==
LOC: ED 23:05
DX: L03.115 Cellulitis of right lower limb (principal); I10 Essential (primary) hypertension; Z79.2 Long term (current) use of antibiotics; Z28.310 Unvaccinated for COVID-19; Z72.0 Tobacco use
CPT/HCPCS: 99281; A9270-GY

== ENCOUNTER 2022-11-11 21:04 | Emergency (ER) | payer OTHER ==
[2022-11-11] MEDS ORDERED: TORAdol 30 mg Injection IM ONE (21:40)
[2022-11-11] MEDS ORDERED: DECADRON 10MG INJ. IM ONE (21:40)
[2022-11-11] MEDS ORDERED: DECADRON 10MG INJ. ONE (21:53)
[2022-11-11] MEDS ORDERED: TORAdol 30 mg Injection ONE (21:53)
[2022-11-11 23:03] VITALS: O2SAT 96
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
--- NOTE | 2022-11-11 23:32 | XRAY ---
CLINICAL HISTORY:Back pain; COMPARISON:MR 03/13/2017; TECHNIQUES:CT scan of lumbar spine done. Axial images were obtained with reformatted coronal and sagittal images and submitted for interpretation; FINDINGS: Straightening of the lumbar spine due to muscle spasm. Normal vertebral body heights. Intact vertebral bodies and neural arches. No definite fractures could be detected. No dislocation. A stable diffuse disc bulge with posterior disc osteophytes at L5-S1 is resulting in moderate bilateral neural foraminal stenosis. No retro paraspinal soft tissue masses. No developmental canal stenosis. IMPRESSION: 1. Straightening of the lumbar spine due to muscle spasm. 2. No acute fracture or dislocation is seen. 3. A stable diffuse disc bulge with posterior disc osteophytes at L5-S1 is resulting in moderate bilateral neural foraminal stenosis. Electronically Signed by: Mary Yu MD. (11/11/2022 22:28:18 INTERACTIVE PROJECT MANAGER)
[2022-11-12 00:05] VITALS: BP 127/71
[2022-11-12 00:10] VITALS: PULSE 89
== END 2022-11-12 00:15 | disposition home or self-care (01) ==
LOC: ED 21:04
DX: S39.012A Strain of muscle, fascia and tendon of lower back, initial encounter (principal); X50.0XXA Overexertion from strenuous movement or load, initial encounter; M62.830 Muscle spasm of back; M48.07 Spinal stenosis, lumbosacral region; I10 Essential (primary) hypertension; Z79.899 Other long term (current) drug therapy; Z28.310 Unvaccinated for COVID-19; Z72.0 Tobacco use
CPT/HCPCS: 72131; 96372; 99283; J1100; J1885